=== PATIENT | male | born 1975 | race Caucasian/White ===

== ENCOUNTER 2023-10-12 21:21 | Outpatient (REF) | payer OTHER, SELFPAY ==
[2023-10-12 22:00] LABS: Bilirubin Urine NEGATIVE (NEGATIVE); Blood Urine NEGATIVE (NEGATIVE); Clarity Urine CLEAR (CLEAR); Color Urine YELLOW (YELLOW); Glucose Urine UA NEGATIVE (NEGATIVE); Ketones Urine NEGATIVE (NEGATIVE); Leukocyte Esterase Urine TRACE (NEGATIVE); Nitrite Urine NEGATIVE (NEGATIVE); Protein Urine NEGATIVE (NEG/TRACE); Urobilinogen Urine 0.2 EU/dL (0.2-1.0)
[2023-10-12 22:06] LABS: Urine Microscopic Indicated YES
[2023-10-12 22:08] LABS: Bacteria Urine NONE SEEN #/HPF (NONE SEEN); Cast Seen? NONE SEEN #/LPF (NONE SEEN); Crystals Seen? None Seen #/HPF (None Seen); Mucus Urine NONE SEEN (NONE SEEN); RBC Urine 0-2 #/HPF (0-2); Squamous Epithelial Cell Urine NONE SEEN #/LPF (NONE/RARE); WBC Urine 0-2 #/HPF (NONE SEEN)
== END 2023-10-12 21:22 | disposition home or self-care (01) ==
LOC: LAB 21:21
PROVIDERS: PCP Family Medicine; Visit Provider Nurse Practitioner
DX: R30.0 Dysuria (principal); R35.1 Nocturia
CPT/HCPCS: 81001; 87086

== ENCOUNTER 2023-10-28 15:36 | Outpatient (OUT) | payer OTHER, SELFPAY ==
--- OUTSIDE RECORDS SUMMARY | 2023-10-28 15:42 | XMS_ITS | CCD ---
Author Organization [facility] Care Team Providers Care Management Recruiter Name Role Phone DYLAN CRAWFORD Attending Unavail able NONE PER PATIENT, . Primary Care Unavailable ESTEFANY IVERSON Primary Care Physician Estefany Iverson. Primary Care Provider MITUL JACKSON Attending Unavailable MITUL JACKSON Admitting Unavailable ESTEFANY IVERSON. Primary Care Unavailable ESTEFANY IVERSON. Primary Care Unavailable MITUL JACKSON Attending Unavailable ESTEFANY IVERSON. Primary Care Unavailable MITUL JACKSON Attending Unavailable Eladiohchelsea BOUFFANT CURTAIN MACHINE TENDEREstefany RUANO Primary Care Provider HAILE RAVI Attending Unavailable ESTEFANY IVERSON Referring Unavailable DEYSI ESTEFANY J Primary Care Unavailable DYLAN ONTIVEROS Attending Unavailable ESTEFANY IVERSON Referring Unavailable DEYSI ESTEFANY J Primary Care Unavailable DYLAN ONTIVEROS Referring Unavailable ESTEFANY IVERSON Primary Care Unavailable ESTEFNAY IVERSON Attending Unavailable ESTEFANY IVERSON Attending Unavailable DEYSI ESTEFANY Latasha Referring Unavailable DEYSI ESTEFANY J Primary Care Unavailable Medications Current Medications Medication Drug Class(es) Dates Sig (Normalized) Sig (Original) acetaminophen 325 mg / oxyCODONE hydrochloride 5 mg oral tablet (3 sources) Opioid Agonist Start: 07-18-2022 End: 07-23-2022 oxyCODONE-acetami nophen (PERCOCET) 5-325 MG per tablet Indications: Post-operative state , Post-op pain Take 1 tablet by mouth every 6 hours as needed for Pain for up to 5 days. Intended supply: 5 days. Take lowest dose possible to manage pain 20 tablet 0 07/18/2022 07/23/2022 Active buprenorphine 8 mg / naloxone 2 mg sublingual tablet (5 sources) Partial Opioid Agonist, Opioid Antagonist Start: 03-24-2022 buprenorphine-nal oxone (SUBOXONE) 8-[address] tablet [address] 2 tablets under the tongue and ALLOW to dissolve once daily 0 03/24/2022 Active buprenorphine-na loxone (SUBOXONE) 8-2 mg film Dissolve on tongue. 0 Active calcium chloride 0.0014 meq/ml / potassium chloride 0.004 meq/ml / sodium chloride 0.103 meq/ml / sodium lactate 0.028 meq/ml injectable solution (1 source) Start: 07-18-2022 lactated ringe rs infusion doxycycline hyclate 100 mg oral capsule (2 sources) Tetracycline-cla ss Drug Start: 07-05-2019 take 1 capsule by mouth twice daily doxycycline (VIBRAMYCIN) 100 mg capsule Take 1 capsule (100 mg total) by mouth 2 (two) times a day. 20 capsule 0 07/05/2019 Active 0.5 ml HYDROmorphone hydrochloride 1 mg/ml prefilled syringe (1 source) Opioid Agonist Start: 07-18-2022 HYDROmorphone HCl PF (DILAUDID) injection 0.5 mg labetalol hydrochloride 5 mg/ml injectable solution (1 source) beta-Adrenergic Lesli Start: 07-18-2022 labetalol (NORMODYNE;TRANDATE ) injection 10 mg omeprazole 40 mg delayed release oral capsule (7 sources) Proton Pump Inhibitor Start: 04-18-2022 take 1 capsule by mouth once daily omeprazole (PRILOSEC) 40 MG delayed release capsule take 1 capsule by mouth once daily 0 04/18/2022 Active Start: 03-26-2022 omeprazole Ora l, Daily, Refills(s) 0 Start Date: 03/26/22 Status: Ordered End: 07-18-2022 omeprazole (PriLOSEC) 10 mg capsule Take 1 capsule (10 mg total) by mouth. 0 Active 2 ml ondansetron 2 mg/ml injection (1 source) Serotonin-3 Receptor Antagonist Start: 07-18-2022 End: 07-19-2022 ondansetron (ZOFRAN) injection 4 mg oxyCODONE hydrochloride 5 mg oral tablet (1 source) Opioid Agonist Start: 07-18-2022 End: 07-19-2022 oxyCODONE (ROXICODONE) immediate release tablet 5 mg pregabalin 100 mg oral capsule (6 sources) Start: 04-23-2022 take 1 capsule by mouth once daily in the morning, then take 2 capsules by mouth once daily in the evening pregabalin (LYRICA) 100 MG capsule take 1 capsule by mouth every morning and take 2 capsules by mouth every evening 0 04/23/2022 Active Start: 03-26-2022 Lyrica Oral, R efills(s) 0 Start Date: 03/26/22 Status: Ordered 2 ml prochlorperazine 5 mg/ml injection (1 source) Phenothiazine Start: 07-18-2022 End: 07-19-2022 prochlorperazine (COMPAZINE) injection 5 mg 5 ml sodium chloride 9 mg/ml injection (3 sources) Start: 07-18-2022 0.9 % sodium c hloride infusion Start: 07-18-2022 sodium chlorid e flush 0.9 % injection 5-40 mL 0.5 ml testosterone enanthate 200 mg/ml auto-injector (2 sources) Androgen Start: 05-06-2023 inject 100 mg by subcutaneous injection every week XYOSTED 100 mg/0.5 mL auto-injector inject 100 milligram subcutaneously every week 0 05/06/2023 Active traZODone hydrochloride 50 mg oral tablet (2 sources) Serotonin Reuptake Inhibitor Start: 05-06-2023 traZODone (DESYREL) 50 mg tablet TAKE 1 TABS AT BEDTIME FOR 7 DAYS, INCREASE TO 2 TABS AT BEDTIME NEEDED 0 05/06/2023 Active Completed/Discontinued Medications Medication Drug Class(es) Dates Sig (Normalized) Sig (Original) betamethasone 3 mg/ml / betamethasone acetate 3 mg/ml injectable suspension (2 sources) Corticosteroid Start: 08-19-2023 End: 08-19-2023 betamethasone acet & sod phos (CELESTONE) injection 12 mg Problems Active Problems Problem Classification Problem Date Documented Date Episodic/Chronic Acquired foot deformities (4 sources) Hammer toe; Translations: [Other hammer toe(s) (acquired), right foot] Onset: 07-18-2022 Chronic Acquired foot deformities (4 sources) Hammer toe; Translations: [Other hammer toe(s) (acquired), left foot] Onset: 07-18-2022 Chronic Acquired foot deformities (1 source) Acquired deformity of right foot; Translations: [Valgus deformity, not elsewhere classified, right ankle] 09-16-2023 Episodic Acquired foot deformities (1 source) Acquired abduction deformity of foot; Translations: [Valgus deformity, not elsewhere classified, left ankle] 09-16-2023 Episodic Disorders of lipid metabolism (1 source) Mixed hyperlipidemia; Translations: [Mixed hyperlipidemia] Onset: 10-27-2023 Chronic Esophageal disorders (1 source) Gastro-esophageal reflux disease without esophagitis; Translations: [Gastro-esophageal reflux disease without esophagitis] Onset: 10-27-2023 Chronic Genitourinary symptoms and ill-defined conditions (2 sources) Nocturia; Translations: [Dysuria] Onset: 10-27-2023 Episodic Inflammatory conditions of male genital organs (1 source) Epididymitis; Translations: [Epididymitis] Onset: 03-26-2022 Episodic Osteoarthritis (10 sources) Unilateral post-traumatic osteoarthritis, right knee; Translations: [Osteoarthrosis, localized, secondary, lower leg] Onset: 08-19-2023 08-19-2023 Chronic Other acquired deformities (4 sources) Contracture of joint of right foot; Translations: [Contracture, right foot] Onset: 07-18-2022 Chronic Other acquired deformities (4 sources) Contracture of joint of left foot; Translations: [Contracture, left foot] Onset: 07-18-2022 Chronic Other connective tissue disease (4 sources) Pain in left foot; Translations: [Pain in left foot] Onset: 07-18-2022 Episodic Other connective tissue disease (4 sources) Pain in right foot; Translations: [Pain in right foot] Onset: 07-18-2022 Episodic Other connective tissue disease (1 source) Pain in both feet; Translations: [Pain in right foot] 09-16-2023 Episodic Other connective tissue disease (1 source) Pain in right foot; Translations: [Pain in right foot] Onset: 09-16-2023 Episodic Other connective tissue disease (1 source) Pain in left foot; Translations: [Pain in left foot] Onset: 09-16-2023 Episodic Other nervous system disorders (1 source) Postoperative pain ; Translations: [Other acute postprocedural pain] Episodic Other nervous system disorders (1 source) Other acute postprocedural pain; Translations: [Other acute postprocedural pain] Onset: 07-18-2022 Episodic Other nutritional; endocrine; and metabolic disorders (1 source) Obesity, unspecified; Translations: [Obesity, unspecified] Onset: 10-27-2023 Chronic Other screening for suspected conditions (not mental disorders or infectious disease) (1 source) Encounter for screening for malignant neoplasm of prostate; Translations: [Encounter for screening for malignant neoplasm of prostate] Onset: 10-27-2023 Episodic Residual codes; unclassified (7 sources) Postoperative state; Translations: [Other specified postprocedural states] Onset: 07-18-2022 Episodic Residual codes; unclassified (1 source) Other specified postprocedural states; Translations: [Other specified postprocedural states] Onset: 07-18-2022 Episodic Residual codes; unclassified (1 source) Pain Onset: 08-19-2023 Episodic Substance-related disorders (1 source) Nicotine dependence, cigarettes, uncomplicated; Translations: [Nicotine dependence, cigarettes, uncomplicated] Onset: 09-24-2018 Chronic Unclassified (1 source) New Patient Onset: 09-16-2023 Past or Other Problems Problem Classification Problem Date Documented Da te Episodic/Chronic Contraceptive and procreative management (4 sources) Encounter for sterilization; Translations: [Patient encounter status] Onset: 09-06-2018 09-06-2018 Episodic Open wounds of extremities (3 sources) Laceration of foot; Translations: [Laceration without foreign body, right foot, initial encounter] Onset: 12-28-2015 12-28-2015 Episodic Open wounds of extremities (2 sources) Open wound of left lower leg; Translations: [Unspecified open wound, left lower leg, initial encounter] Onset: 07-06-2019 07-06-2019 Episodic Residual codes; unclassified (2 sources) Tobacco use and exposure - finding; Translations: [Tobacco use] Onset: 07-13-2019 07-13-2019 Episodic Results Test Name Value Interpretation Reference Range Facility CBC AND AUTO DIFFon 10-27-19 ABSOLUTE BASOPHIL 0.0 X10E9/L Normal 0.0-0.2 [facility] Comment on above: Performed By: #### C BCA, 2857-1, CMP, 26372-5 #### [facility] ([id number]) [address], [address] [place] [address] ABSOLUTE NEUTROPHIL 4.9 X10E9/L Normal 1.5-6.6 [facility] Comment on above: Performed By: #### Jeremy BCA, 2857-1, CMP, 98855-6 #### [facility] ([id number]) [address], [address] [place] [address] Basophils/100 WBC (Bld) 0.4 % Normal [facility] Comment on above: Performed By: #### Jeremy BCA, 2857-1, CMP, 94505-7 #### [facility] ([id number]) [address], [address] [place] [address] Eosinophils (Bld) [#/Vol] 0.2 10*3/uL Normal 0.0-0.4 [facility] Comment on above: Performed By: #### Jeremy BCA, 2857-1, CMP, 74705-8 #### [facility] ([id number]) [address], [address] [place] [address] Eosinophils/100 WBC (Bld) 2.1 % Normal [facility] Comment on above: Performed By: #### Jeremy BCA, 2857-1, CMP, 25412-1 #### [facility] ([id number]) [address], [address] [place] [address] Erythrocyte distribution width (RBC) [Ratio] 14.0 % Normal 11.5-15.0 [facility] Comment on above: Performed By: #### Jeremy BCA, 2857-1, CMP, 33054-8 #### [facility] ([id number]) [address], [address] [place] [address] Hematocrit (Bld) [Volume fraction] 46.2 % Normal 39-49 [facility] Comment on above: Performed By: #### Jeremy BCA, 2857-1, CMP, 53702-9 #### [facility] ([id number]) [address], [address] [place] [address] Hemoglobin (Bld) [Mass/Vol] 15.1 g/dL Normal 13.0-17.0 [facility] Comment on above: Performed By: #### Jeremy REA, 2857-1, CMP, 37442-1 #### [facility] ([id number]) [address], [address] [place] [address] Lymphocytes (Bld) [#/Vol] 1.6 10*3/uL Normal 1.0-3.5 [facility] Comment on above: Performed By: #### Jeremy REA, 2857-1, CMP, 47365-6 #### [facility] ([id number]) [address], [address] [place] [address] Lymphocytes/100 WBC (Bld) 22.1 % Normal [facility] Comment on above: Performed By: #### Jeremy REA, 2857-1, CMP, 38129-7 #### [facility] ([id number]) [address], [address] [place] [address] MCH (RBC) [Entitic mass] 29.6 pg Normal 27-34 [facility] Comment on above: Performed By: #### Jeremy BCA, 2857-1, CMP, 56704-5 #### [facility] ([id number]) [address], [address] [place] [address] MCHC (RBC) [Mass/Vol] 32.6 g/dL Normal 32-36 [facility] Comment on above: Performed By: #### Jeremy BCA, 2857-1, CMP, 08988-6 #### [facility] ([id number]) [address], [address] [place] [address] MCV (RBC) [Entitic vol] 91 fL Normal 80-100 [facility] Comment on above: Performed By: #### Jeremy BCA, 2857-1, CMP, 78126-2 #### [facility] ([id number]) [address], [address] [place] [address] Monocytes (Bld) [#/Vol] 0.6 10*3/uL Normal 0-0.9 [facility] Comment on above: Performed By: #### Jeremy BCA, 2857-1, CMP, 43784-1 #### [facility] ([id number]) [address], [address] [place] [address] Monocytes/100 WBC (Bld) 8.6 % Normal [facility] Comment on above: Performed By: #### Jeremy BCA, 2857-1, CMP, 67192-6 #### [facility] ([id number]) [address], [address] [place] [address] Neutrophils/100 WBC (Bld) 66.8 % Normal [facility] Comment on above: Performed By: #### Jeremy BCA, 2857-1, CMP, 24939-5 #### [facility] ([id number]) [address], [address] [place] [address] Platelet mean volume (Bld) [Entitic vol] 7.9 fL Normal 7-12 [facility] Comment on above: Performed By: #### Jeremy BCA, 2857-1, CMP, 13865-4 #### [facility] ([id number]) [address], [address] [place] [address] Platelets (Bld) [#/Vol] 296 10*3/uL Normal 150-450 [facility] Comment on above: Performed By: #### Jeremy BCA, 2857-1, CMP, 36060-6 #### [facility] ([id number]) [address], [address] [place] [address] RBC COUNT 5.08 X10E12/L Normal 4.10-5.70 [facility] Comment on above: Performed By: #### C BCA, 2857-1, CMP, 74173-4 #### [facility] ([id number]) [address], [address] [place] [address] WBC (Bld) [#/Vol] 7.3 10*3/uL Normal 4.0-11.0 [facility] Comment on above: Performed By: #### C BCA, 2857-1, CMP, 90455-3 #### [facility] ([id number]) [address], [address] [place] [address] COMPREHENSIVE METABOLIC PANE Evan 10-27-2023 Albumin [Mass/Vol] 4.1 g/dL Normal 3.2-5.3 [facility] Comment on above: Performed By: #### C BCA, 2857-1, CMP, 46638-3 #### [facility] ([id number]) [address], [address] [place] [address] ALP [Catalytic activity/Vol] 59 U/L Normal 39-130 [facility] Comment on above: Performed By: #### C BCA, 2857-1, CMP, 63205-8 #### [facility] ([id number]) [address], [address] [place] [address] ALT [Catalytic activity/Vol] 37 U/L Normal 0-40 [facility] Comment on above: Performed By: #### C BCA, 2857-1, CMP, 41682-1 #### [facility] ([id number]) [address], [address] [place] [address] Anion gap [Moles/Vol] 11 mmol/L Normal 5-15 [facility] Comment on above: Performed By: #### C BCA, 2857-1, CMP, 56675-3 #### [facility] ([id number]) [address], [address] [place] [address] AST [Catalytic activity/Vol] 42 U/L High 0-41 [facility] Comment on above: Performed By: #### C BCA, 2857-1, CMP, 46906-0 #### [facility] ([id number]) [address], [address] [place] [address] Bilirubin [Mass/Vol] 0.9 mg/dL Normal 0.3-1.2 [facility] Comment on above: Performed By: #### C BCA, 2857-1, CMP, 09170-3 #### [facility] ([id number]) [address], [address] [place] [address] Calcium [Mass/Vol] 9.0 mg/dL Normal 8.5-10.5 [facility] Comment on above: Performed By: #### C BCA, 2857-1, CMP, 16882-9 #### [facility] ([id number]) [address], [address] [place] [address] Chloride [Moles/Vol] 99 mmol/L Normal 98-109 [facility] Comment on above: Performed By: #### C BCA, 2857-1, CMP, 67793-8 #### [facility] ([id number]) [address], [address] [place] [address] CO2 [Moles/Vol] 27 mmol/L Normal 22-32 [facility] Comment on above: Performed By: #### C BCA, 2857-1, CMP, 88696-6 #### [facility] ([id number]) [address], [address] [place] [address] Creatinine [Mass/Vol] 0.95 mg/dL Normal 0.60-1.30 [facility] Comment on above: Result Comment: METH OD TRACEABLE TO IDMS STANDARD Performed By: #### C BCA, 2857-1, CMP, 26084-4 #### [facility] ([id number]) [address], [address] [place] [address] eGFR (CKD-EPI) NON-RACE DEPENDENT >90 Normal >59 [facility] Comment on above: Result Comment: Reported eGFR is based on the CKD-EPI 2020 equation that does not use a race coefficient. Performed By: #### C BCA, 2857-1, CMP, 02076-3 #### [facility] ([id number]) [address], [facility] [address] [place] [address] Glucose [Mass/Vol] 96 mg/dL Normal 65-99 [facility] Comment on above: Performed By: #### C BCA, 2857-1, CMP, 35824-6 #### [facility] ([id number]) [address] [address] [place] [address] Potassium [Moles/Vol] 3.9 mmol/L Normal 3.5-5.0 [facility] Comment on above: Performed By: #### C BCA, 2857-1, CMP, 16686-6 #### [facility] ([id number]) [address] [address] [place] [address] Protein [Mass/Vol] 6.3 g/dL Normal 6.0-8.0 [facility] Comment on above: Performed By: #### C BCA, 2857-1, CMP, 67908-0 #### [facility] ([id number]) [address] [address] [place] [address] Sodium [Moles/Vol] 137 mmol/L Normal 134-146 [facility] Comment on above: Performed By: #### C BCA, 2857-1, CMP, 92128-3 #### [facility] ([id number]) [address] [address] [place] [address] Urea nitrogen [Mass/Vol] 9 mg/dL Normal 5-23 [facility] Comment on above: Performed By: #### C BCA, 2857-1, CMP, 23845-7 #### [place] [facility] ([id number]) [address], [address] [place] [address] Lipid 1996 panelon 4 Cholesterol [Mass/Vol] 168 mg/dL Normal 150-200 [facility] Comment on above: Performed By: #### Jeremy BCA, 2857-1, CMP, 17017-9 #### [facility] ([id number]) [address], [address] [place] [address] Cholesterol in HDL [Mass/Vol] 68 mg/dL Normal >39 [facility] Comment on above: Result Comment: HDL <40 mg/dL - High Risk HDL > or = 40mg/dL- Desirable HDL >60 mg/dL - Negative Risk Performed By: #### Jeremy BCA, 2857-1, CMP, 32419-0 #### [facility] ([id number]) [address], [address] [place] [address] Cholesterol in LDL [Mass/Vol] 80 mg/dL Normal <130 [facility] Comment on above: Result Comment: LDL <100 mg/dL - Desirable LDL >160 mg/dL - High Risk Performed By: #### Jeremy BCA, 2857-1, CMP, 64456-1 #### [facility] ([id number]) [address], [address] [place] [address] Cholesterol in VLDL [Mass/Vol] 20 mg/dL Normal 0-30 [facility] Comment on above: Performed By: #### Jeremy BCA, 2857-1, CMP, 60531-9 #### [facility] ([id number]) [address], [address] [place] [address] CHOLESTEROL:HDL 2.5 Normal 1.0-5.0 [facility] Comment on above: Performed By: #### C BCA, 2857-1, CMP, 36364-7 #### [facility] ([id number]) [address], [address] [place] [address] Triglyceride [Mass/Vol] 102 mg/dL Normal 27-150 [facility] Comment on above: Performed By: #### C BCA, 2857-1, CMP, 94365-5 #### [facility] ([id number]) [address], [address] [place] [address] Prostate specific Ag [Mass/V ol]on 10-27-2023 PROSTATIC SPEC ANT 0.11 ng/mL Normal 0.00-4.00 [facility] Comment on above: Result Comment: The method used for this test is Makenna Techtium DXI chemiluminescent immunoassay. Values obtained by different assay methods cannot be used interchangeably. Performed By: #### C BCA, 2857-1, [facility], 07920-0 #### [facility] ([id number]) [address], [address] [place] [address] XR Foot - right 3 Views W andingon 09-16-2023 Date xrays obtained :09/16/2023 Standing AP, lateral oblique of the right foot was obtained today. This shows evidence of fixation across the 2nd toe IP joint. Patient also noted to have subluxation 1st and 2nd tarsometatarsal joints. And also some talonavicular uncoverage. Patient is also noted to have some gapping along the plantar aspect of the TMT joints. MANUALLY TRANSCRIBED RESULTS [facility] Rad[facility] Study observation (narrative) [facility] XR Foot 3 Views W standingon 09-16-2023 Date xrays obtained :09/16/2023 Standing AP, lateral oblique of the left foot was obtained today. This shows patient to have well fused 2nd toe IP joint with a implant in place. Patient is also going to have fairly significant talonavicular uncoverage. There is some subluxation of the tarsometatarsal joints. The lateral view also shows fairly significant collapse of the arch with the medial cuneiform sitting well below the level of the 5th metatarsal. There is also plantar gapping along the 1st TMT joint region. MANUALLY TRANSCRIBED RESULTS [email or web address] Radiology Study observation (narrative) [facility] $ Large Joint Injection: ghazal ateral kneeon 08-19-2023 Haile Ravi MD 08/19/2023 4:38 PM $ Large Joint Injection: bilateral knee on 08/19/2023 3:12 PM Indications: pain Details: 22 G needle, anterolateral approach Medications (Right): 12 mg betamethasone acet & sod phos 6 mg/mL Medications (Left): 12 mg betamethasone acet & sod phos 6 mg/mL Outcome: tolerated well, no immediate complications The patient was instructed to use ice, NSAIDs, or Tylenol for pain as needed. The patient will call with any signs or concerns. Procedure, treatment alternatives, risks and benefits explained, specific risks discussed. Patient was prepped and draped in the usual sterile fashion. MANUALLY TRANSCRIBED RESULTS [facility] MRI Knee w/o Righton 023 MRI Knee w/o Right History: Lateral kne e pain. Internal derangement. Technique: Multiplanar multisequence MRI of the knee was performed without contrast. Comparison: Radiograph since the knee 11/13/2022 Findings: Examination is degraded by motion artifact. Quadriceps and patellar tendons are intact. Small joint effusion. Postsurgical changes of ACL reconstruction. ACL graft is intact. The posterior cruciate ligament is intact. Millimeter intraosseous ganglion of the posterior tibial plateau at the attachment of the posterior cruciate ligament. The medial collateral ligament, lateral collateral ligament, and popliteus are intact. Mild popliteus tendinosis. Complex tear of the body through posterior horn of the medial meniscus including complete radial tear of the posterior horn. Horizontal tear of the body through posterior horn/root of the lateral meniscus. 11 mm full-thickness cartilage defect of the posterior weightbearing lateral femoral condyle with a few foci of subcortical bone marrow edema. Additional scattered tiny tricompartmental partial thickness cartilage defects. Small medial and lateral compartment marginal osteophytes. Popliteal fossa structures are intact. No Newman cyst. IMPRESSION: Complex tear of the body through posterior horn of the medial meniscus. Horizontal tear of the body through posterior horn/root of the lateral meniscus. Osteoarthritis most significantly involving the lateral compartment. Report reported and signed by Kiran Jarrett on 12/14/2022 1346 Normal [facility] [employer] Crewmember FLUORO FOR SURGICAL PROCEDUR ESon 07-18-2022 FLUORO FOR SURGICAL PROCEDURES Radiology exam is complete. No Radiologist dictation. Please follow up with ordering provider. Final result Normal [facility] Radiology exam is complete. No Radiologist dictation. Please follow up with ordering provider. [facility] XR FOOT LEFT (MIN 3 VIEWS)on 07-18-2022 XR FOOT LEFT (MIN 3 VIEWS) EXAMINATION: THREE XRAY VIEWS OF THE LEFT FOOT 07/18/2022 10:19 am COMPARISON: 05/05/2022 HISTORY: ORDERING SYSTEM PROVIDED HISTORY: Post-operative state TECHNOLOGIST PROVIDED HISTORY: Reason for Exam: Post op state, left second hammertoe arthrodesis. FINDINGS: Status post arthrodesis across the 2nd PIP joint. Anatomic alignment. No hardware complications. IMPRESSION: No hardware complications postoperatively Interpreted by: Reyes Palacios MD Signed by: Reyes Palacios MD 07/18/[address] [facility] No hardware complications postoperatively [facility] EXAMINATION: THREE XRAY VIEWS OF THE LEFT FOOT 07/18/2022 10:19 am COMPARISON: 05/05/2022 HISTORY: ORDERING SYSTEM PROVIDED HISTORY: Post-operative state TECHNOLOGIST PROVIDED HISTORY: Reason for Exam: Post op state, left second hammertoe arthrodesis. FINDINGS: Status post arthrodesis across the 2nd PIP joint. Anatomic alignment. No hardware complications. [facility] Reyes Palacios MD - 07/18/2022 EXAMINATION: THREE XRAY VIEWS OF THE LEFT FOOT 07/18/2022 10:19 am COMPARISON: 05/05/2022 HISTORY: ORDERING SYSTEM PROVIDED HISTORY: Post-operative state TECHNOLOGIST PROVIDED HISTORY: Reason for Exam: Post op state, left second hammertoe arthrodesis. FINDINGS: Status post arthrodesis across the 2nd PIP joint. Anatomic alignment. No hardware complications. IMPRESSION: No hardware complications postoperatively [employer] Phone: Radiology Study observation (narrative) [employer] Phone: XR FOOT LEFT (MIN 3 VIEWS)Or dered By: Reyes Palacios on 07-18-2022 CECI SUGEY [facility] [employer] Work Phone: XR FOOT RIGHT (MIN 3 VIEWS)o n 07-18-2022 XR FOOT RIGHT (MIN 3 VIEWS) EXAM: XR Right Foot Complete, 3 or More Views EXAM DATE/TIME: 07/18/2022 10:19 am CLINICAL HISTORY: ORDERING SYSTEM PROVIDED Post-operative state TECHNOLOGIST PROVIDED HISTORY: Reason for Exam: Post op state, right second hammertoe arthrodesis. TECHNIQUE: Frontal, lateral and oblique views of the right foot. COMPARISON: 05/05/2022 FINDINGS: Bones/joints: Arthrodesis of the proximal or phalangeal joint of the 2nd toe with screw in place and unchanged in appearance or alignment. Plantar/calcaneal spur without evidence of erosion. No acute fracture. Soft tissues: No acute findings. No radiopaque foreign body. IMPRESSION: Arthrodesis of the proximal or phalangeal joint of the 2nd toe with screw in place and unchanged in appearance or alignment. No acute abnormality or significant changes noted otherwise. Interpreted by: Dylan Llanes MD Signed by: Dylan Llanes MD 07/18/[address] [facility] Arthrodesis of the proximal or phalangeal joint of the 2nd toe with screw in place and unchanged in appearance or alignment. No acute abnormality or significant changes noted otherwise. [facility] EXAM: XR Right Foot Complete, 3 or More Views EXAM DATE/TIME: 07/18/2022 10:19 am CLINICAL HISTORY: ORDERING SYSTEM PROVIDED Post-operative state TECHNOLOGIST PROVIDED HISTORY: Reason for Exam: Post op state, right second hammertoe arthrodesis. TECHNIQUE: Frontal, lateral and oblique views of the right foot. COMPARISON: 05/05/2022 FINDINGS: Bones/joints: Arthrodesis of the proximal or phalangeal joint of the 2nd toe with screw in place and unchanged in appearance or alignment. Plantar/calcaneal spur without evidence of erosion. No acute fracture. Soft tissues: No acute findings. No radiopaque foreign body. [facility] Dylan Llanes MD - 07/18/2022 EXAM: XR Right Foot Complete, 3 or More Views EXAM DATE/TIME: 07/18/2022 10:19 am CLINICAL HISTORY: ORDERING SYSTEM PROVIDED Post-operative state TECHNOLOGIST PROVIDED HISTORY: Reason for Exam: Post op state, right second hammertoe arthrodesis. TECHNIQUE: Frontal, lateral and oblique views of the right foot. COMPARISON: 05/05/2022 FINDINGS: Bones/joints: Arthrodesis of the proximal or phalangeal joint of the 2nd toe with screw in place and unchanged in appearance or alignment. Plantar/calcaneal spur without evidence of erosion. No acute fracture. Soft tissues: No acute findings. No radiopaque foreign body. IMPRESSION: Arthrodesis of the proximal or phalangeal joint of the 2nd toe with screw in place and unchanged in appearance or alignment. No acute abnormality or significant changes noted otherwise. [employer] Phone: Radiology Study observation (narrative) [employer] Phone: XR FOOT RIGHT (MIN 3 VIEWS)O rdered By: Dylan Llanes on 07-18-2022 [employer] [facility] [employer] Work Phone: [employer] 03-27-2022 Forms [id number] .00CD:127 Normal [facility] Physician Referralon 022 Physician Referral [id number]. 00CD:127 Normal [facility] Screenson 03-27-2022 Screens [id number]. 00CD:127 Normal [facility] Screens [id number]. 00CD:127 Normal [facility] Ambulatory Visit Summaryon 0 03-26-2022 Ambulatory Visit Summary RICCI RODRIGES :1975 Visit Date:03/26/2022 Ambulatory Visit Instructions Your Diagnosis Epididymitis Tests Performed Urnls Dip Stick Auto w/o Microscopy POC 10503 Your Care Team Attending Physician - Pedro RDZ, Gemini Gregorio Primary Care Physician - ESTEFANY IVERSON CNP Referring Physician - SHAIKH MARTIN This Is Your Medications List Contact prescribing physician if questions or concerns omeprazole pregabalin (Lyrica) Procedures Performed Colonoscopy. Discharge Vitals Height 194 cm Height 194.0 cm Weight 117 kg Weight 117.0 kg BMI 31.09 What to do next You Need to Schedule the Following Appointments Follow Up with Pedro RDZ, Gemini Gregorio, URAriadna, URO When: Only if needed Comments: PRN Where: Medications What How Much When Instructions Unchanged omeprazole Every day Contact prescribing physician if questions or concerns Unchanged pregabalin (Lyrica) Contact prescribing physician if questions or concerns Test Results Urnls Dip Stick Auto w/o Microscopy POC 38609 (03/26/2022) Bilirubin Urine Dipstick - Negative Blood Urine Dipstick - Negative Glucose Urine Dipstick - Negative Ketones Urine Dipstick - Negative Leukocytes Urine Dipstick - Negative Nitrite Urine Dipstick - Negative Protein Urine Dipstick - Negative Specific [place] Urine Dipstick - 1.020 Urine Appearance Urine Dipstick - Clear Urine Color Urine Dipstick - Yellow Urobilinogen Urine Dipstick - Normal 0.2-1 EU/dl pH Urine Dipstick - 5.5 Medications and Immunizations Administered Not Given SARS-CoV-2 mRNA (tozinameran 5y-11y) vac, Postpone due to refusal Allergies No Known Allergies No Known Medication Allergies Education Materials Testicular Self-Exam A self-examination of your testicles (testicular self-exam) involves looking at and feeling your testicles for abnormal lumps or swelling. Several things can cause swelling, lumps, or pain in your testicles. Some of these causes are: ? Injuries. ? Inflammation. ? Infection. ? Buildup of fluids around your testicle (hydrocele). ? Twisted testicles (testicular torsion). ? Testicular cancer. Why is it important to do a testicular self-exam? Self-examination of the testicles and the left and right groin areas may be recommended if you are at risk for testicular cancer. Your groin is where your lower abdomen meets your upper thighs. You may be at risk for testicular cancer if you have: ? An undescended testicle (cryptorchidism). ? A history of previous testicular cancer. ? A family history of testicular cancer. How to do a testicular self-exam The testicles are easiest to examine after a warm bath or shower. They are more difficult to examine when you are cold. This is because the muscles attached to the testicles retract and pull them up higher or into the abdomen. A normal testicle is egg-shaped and feels firm. It is smooth and not tender. The spermatic cord can be felt as a firm, spaghetti-like cord at the back of your testicle. Look and feel for changes ? Stand and hold your penis away from your body. ? Look at each testicle to check for lumps or swelling. ? Roll each testicle between your thumb and forefinger, feeling the entire testicle. Feel for: ? Lumps. ? Swelling. ? Discomfort. ? Check the groin area between your abdomen and upper thighs on both sides of your body. Look and feel for any swelling or bumps that are tender. These could be enlarged lymph nodes. Contact a health care provider if: ? You find any bumps or lumps, such as a small, hard, pea-sized lump. ? You find swelling, pain, or soreness. ? You see or feel any other changes in your testicles. Summary ? A self-examination of your testicles (testicular self-exam) involves looking at and feeling your testicles for any changes. ? Self-examination of the testicles and the left and right groin areas may be recommended if you are at risk for testicular cancer. ? You should check each of your testicles for lumps, swelling, or discomfort. ? You should check for swelling or tender bumps in your groin area between your lower abdomen and upper thighs. This information is not intended to replace advice given to you by your health care provider. Make sure you discuss any questions you have with your health care provider. Document Released: 10/26/2001 Document Revised: 11/10/2019 Document Reviewed: 06/15/2017 [employer] Patient Education ? 2020 [employer] Epididymitis Epididymitis is swelling (inflammation) or infection of the epididymis. The epididymis is a cord-like structure that is located along the top and back part of the testicle. It collects and stores sperm from the testicle. This condition can also cause pain and swelling of the testicle and scrotum. Symptoms usually start suddenly (acute epididymitis). Sometimes epididymitis starts grad (more content not included)... Normal [facility] Patient Educationon 03-26-20 Patient Education Urology Testicular Self-Exam A self-examination of your testicles (testicular self-exam) involves looking at and feeling your testicles for abnormal lumps or swelling. Several things can cause swelling, lumps, or pain in your testicles. Some of these causes are: ? Injuries. ? Inflammation. ? Infection. ? Buildup of fluids around your testicle (hydrocele). ? Twisted testicles (testicular torsion). ? Testicular cancer. Why is it important to do a testicular self-exam? Self-examination of the testicles and the left and right groin areas may be recommended if you are at risk for testicular cancer. Your groin is where your lower abdomen meets your upper thighs. You may be at risk for testicular cancer if you have: ? An undescended testicle (cryptorchidism). ? A history of previous testicular cancer. ? A family history of testicular cancer. How to do a testicular self-exam The testicles are easiest to examine after a warm bath or shower. They are more difficult to examine when you are cold. This is because the muscles attached to the testicles retract and pull them up higher or into the abdomen. A normal testicle is egg-shaped and feels firm. It is smooth and not tender. The spermatic cord can be felt as a firm, spaghetti-like cord at the back of your testicle. Look and feel for changes ? Stand and hold your penis away from your body. ? Look at each testicle to check for lumps or swelling. ? Roll each testicle between your thumb and forefinger, feeling the entire testicle. Feel for: ? Lumps. ? Swelling. ? Discomfort. ? Check the groin area between your abdomen and upper thighs on both sides of your body. Look and feel for any swelling or bumps that are tender. These could be enlarged lymph nodes. Contact a health care provider if: ? You find any bumps or lumps, such as a small, hard, pea-sized lump. ? You find swelling, pain, or soreness. ? You see or feel any other changes in your testicles. Summary ? A self-examination of your testicles (testicular self-exam) involves looking at and feeling your testicles for any changes. ? Self-examination of the testicles and the left and right groin areas may be recommended if you are at risk for testicular cancer. ? You should check each of your testicles for lumps, swelling, or discomfort. ? You should check for swelling or tender bumps in your groin area between your lower abdomen and upper thighs. This information is not intended to replace advice given to you by your health care provider. Make sure you discuss any questions you have with your health care provider. Document Released: 10/26/2001 Document Revised: 11/10/2019 Document Reviewed: 06/15/2017 [employer] Patient Education ? 2019 [employer]. Epididymitis Epididymitis is swelling (inflammation) or infection of the epididymis. The epididymis is a cord-like structure that is located along the top and back part of the testicle. It collects and stores sperm from the testicle. This condition can also cause pain and swelling of the testicle and scrotum. Symptoms usually start suddenly (acute epididymitis). Sometimes epididymitis starts gradually and lasts for a while (chronic epididymitis). This type may be harder to treat. What are the causes? In men ages 20?40, this condition is usually caused by a bacterial infection or a sexually transmitted disease (STD), such as: ? Gonorrhea. ? Chlamydia. In men 40 and older who do not have anal sex, this condition is usually caused by bacteria from a blockage or from abnormalities in the urinary system. These can result from: ? Having a tube placed into the bladder (urinary catheter). ? Having an enlarged or inflamed prostate gland. ? Having recently had urinary tract surgery. ? Having a problem with a backward flow of urine (retrograde). In men who have a condition that weakens the body's defense system (immune system), such as HIV, this condition can be caused by: ? Other bacteria, including tuberculosis and syphilis. ? Viruses. ? Fungi. Sometimes this condition occurs without infection. This may happen because of trauma or repetitive activities such as sports. What increases the risk? You are more likely to develop this condition if you have: ? Unprotected sex with more than one partner. ? Anal sex. ? Recently had surgery. ? A urinary catheter. ? Urinary problems. ? A suppressed immune system. What are the signs or symptoms? This condition usually begins suddenly with chills, fever, and pain behind the scrotum and in the testicle. Other symptoms include: ? Swelling of the scrotum, testicle, or both. ? Pain when ejaculating or urinating. ? Pain in the back or abdomen. ? Nausea. ? Itching and discharge from the penis. ? A frequent need to pass urine. ? Redness, increased warmth, and tenderness of the scrotum. How is this diagnosed? Your health care provider can karen (more content not included)... Normal [facility] Urology Office/Clinic Noteon 03-26-2022 Urology Office/Clinic Note Chief Complaint New Patient HPI Staff Ricci is a 46 y/o male here for scrotal pain. Pt states he was put on ABX and everything cleared up on its own. Dysuria: _denies Incomplete bladder emptying: _denies Hematuria: _denies Frequency: _denies Urgency: _denies Nocturia: _1x Stream: _steady Leaking: _denies Post void dripping: _denies Wearing pads/ Depends: _denies Urge incontinence: _denies Stress incontinence: _denies Incontinence without Sensory Awareness: _denies Abdominal pain: _denies Flank pain: _denies Sexual complaints: _ History of Present Illness Tests Reviewed: Reviewed UA. New pt paperwork I have reviewed and verified the staff HPI to be accurate for this encounter. There have been no associated fever, chills, flank pain, or blood in the urine. Denies any urinary infections since last encounter. Review of Prior External Notes and Results: The following documents and/or results were reviewed on this visit which are external to my provider group and/or outside of my specialty: Records Reviewed: Outside Provider Notes, Review of Systems ROS - Provider Constitutional: denies weight loss, denies hot flashes. Eyes: denies eye problems. Gastrointestinal: denies nausea, denies vomiting. Cardiovascular: denies chest pain or angina. Integumentary: no dryness Musculoskeletal: denies musculoskeletal symptoms. ENMT: denies otolaryngeal symptoms. Respiratory: no shortness of breath. Heme/Lymph: denies easy bleeding tendency, denies easy bruising tendency. Psychiatric: no confusion, no anxiety. Genitourinary: see HPI Physical Exam Vitals & Measurements HT: 194 cm HT: 194.0 cm WT: 117 kg WT: 117.0 kg BMI: 31.09 General Appearance: alert, no distress, well nourished, well developed male. Head: normocephalic . Eyes: normal orbit and globe. ENMT: normal examination of external ears. Chest: symmetric chest rise, respirations non labored. Cardiovascular: regular rate and rhythm. Abdomen: soft, non distended, no tenderness Genitourinary: normal scrotum, normal testes, normal urethra, BL epididymis non tender, small 2mm cyst the right mid epididymitis, normal vas deferens/spermatic cord. Flank Pain: none. Bladder: nonpalpable. Penis: normal shaft, normal glans. Circumcised Skin: warm, dry, no bruising. Psychiatric: cooperative, affect appropriate for age, normal judgement, euthymic mood. Assessment/Plan 46 yo M new patient evaluation for history of right scrotal pain TOSIN- 25 IPSS- 2 UA today is clear/negative no signs of any infections Vasectomy 3 years ago 1. Epididymitis (N45.1: Epididymitis) Pt went to his PCP because of scrotal pain. His PCP treated him with 10 days of ABX. Infection on right side Stated problem resolved with ABX. First time encountering this problem No urinary complaints, does hold urine at times due to work No pain or blood with ejaculation no hx of urinary infections Benign exam today Advised pt to wear scrotal support, such as a jockstrap to help support his scrotal, especially when he does strenuous activities. Also to take anti inflammatory medications for pain, and to ice his scrotal area as needed Timed voiding Pt to notify us if his symptoms recur Follow-up With When Contact Information Gemini Vasquez MD, URL, URO Only if needed Additional Instructions: PRN Patient Education Testicular Self-Exam Epididymitis I, Nicole Chaudhary, personally scribed for Dr. Vasquez on 03/26/2022 11:37:41. . Documentation recorded by the scribe, Nicole Chaudhary, accurately reflects the services(s) I performed and decisions made by me. Authenticated by Dr. Vasquez on 03/26/2022 12:08:07. Problem List/Past Medical History Ongoing No qualifying data Historical No qualifying data Procedure/Surgical History Colonoscopy. Medications Lyrica, Oral omeprazole, Oral, Daily Allergies No Known Allergies No Known Medication Allergies Social History Alcohol Current, Beer, Daily, 03/26/2022 Tobacco 5-9 cigarettes (between 1/4 to 1/2 pack)/day in last 30 days Tobacco Use:. Never Smokeless Tobacco Use:. Cigarettes, 03/26/2022 Immunizations Vaccine Date Status Comments SARS-CoV-2 mRNA (tozinameran 5y-11y) vac - Not Given Postpone due to refusal Lab Results Ambulatory Point of Care Results Bilirubin Urine Dipstick: Negative (03/26/22 10:53:00) Blood Urine Dipstick: Negative (03/26/22 10:53:00) Glucose Urine Dipstick: Negative (03/26/22 10:53:00) Ketones Urine Dipstick: Negative (03/26/22 10:53:00) Leukocytes Urine Dipstick: Negative (03/26/22 10:53:00) Nitrite Urine Dipstick: Negative (03/26/22 10:53:00) Protein Urine Dipstick: Negative (03/26/22 10:53:00) Specific [place] Urine Dipstick: 1.020 (03/26/22 10:53:00) Urine Appearance Urine Dipstick: Clear (03/26/22 10:53:00) Urine Color Urine Dipstick: Yellow (03/26/22 10:53:00) Urobilinogen Urine D (more content not included)... Normal [facility] Comment on above: Result Comment: Elec tronically Signed By: Gemini Vasquez MD\.br\Date and Time Signed: 03/26/22 12:08 EDT\.br\Electronically Co-Signed By: Nicole Chaudhary\.br\Date and Time Co-Signed: 03/26/22 11:38 EDT SURGICAL PATH REPORTon 09-28 SURGICAL PATH REPORT Normal [facility] Comment on above: Result Comment: DIAG NOSIS A and B RIGHT AND LEFT VAS DEFERENS, PARTIAL RESECTIONS: BENIGN, COMPLETE TRANSECTIONS OF BILATERAL VAS DEFERENS CPT 88406 X2 parrish/09/28/2018 Electronically Signed Out by Bryan Contreras M.D. NATURE OF SPECIMEN A: Left vas segment B: Right vas segment ICD-CM CODE(S) Z30.2 Encounter For Sterilization GROSS DESCRIPTION A The container is labeled Ricci Rodriges, left vas segment . Received in formalin is a single glistening mariano-white cord-like segment measuring 0.7 cm in length. Submitted in its entirety. One cassette. ns B The container is labeled Ricci Rodriges, right vas segment . Received in formalin is a single glistening mariano-white cord-like segment measuring 1.2 cm in length. Submitted in its entirety. One cassette. ns mg parrish/09/28/2018 MICROSCOPIC DESCRIPTION A Microscopic examination was performed. B Microscopic examination was performed. Pathology [employer]. [address] [place] [address] CLIA No. [id number] CAP Accreditation No. [id number] Conduit Mechanic: Edi Lynn M.D. [employer] Accession Number: [id number] Performed By: #### P L BIOPSY #### [address] [address] SURGICAL PATH REPORTon 09-24 Age at specimen collection = Normal [facility] Comment on above: Performed By: #### P L BIOPSY #### [address] [address] Vital Signs Date Time Vital Sign Value Performing Clinician Faci lity 09-16-2023 10:37-0500 Body height 193 cm Dylan Ontiveros MD Work Phone: [facility] 09-16-2023 10:37-0500 Body mass index (BMI) [Ratio] 32.62 kg/m2 Dylan Ontiveros MD Work Phone: [facility] 09-16-2023 10:37-0500 Body weight 121.56 kg Dylan Ontiveros MD Work Phone: [facility] 08-19-2023 15:12-0500 Body height 193 cm Haile Ravi MD Work Phone: [facility] 08-19-2023 15:12-0500 Body mass index (BMI) [Ratio] 32.62 kg/m2 Haile Ravi MD Work Phone: [facility] 08-19-2023 15:12-0500 Body weight 121.56 kg Haile Ravi MD Work Phone: [facility] 07-18-2022 10:30-0500 Body temperature 97.5 [degF] Mitul Jackson DPM Work Phone: [employer] 07-18-2022 10:30-0500 Diastolic blood pressure 83 mm[Hg] Mitul Jackson DPM Work Phone: [facility] 07-18-2022 10:30-0500 Heart rate 79 /min Mitul Nadiron DPM Work Phone: [facility] 07-18-2022 10:30-0500 Respiratory rate 13 /min Mitul Nadiron DPM Work Phone: [facility] 07-18-2022 10:30-0500 SaO2% (BldA) [Mass fraction] 94 % Mitul Nadiron DPM Work Phone: [facility] 07-18-2022 10:30-0500 Systolic blood pressure 136 mm[Hg] [facility]ul [facility]ne DPM [facility] 07-18-2022 06:31-0500 Body height 193 cm Mitul Nadiron DPM Work Phone: [facility] 07-18-2022 06:31-0500 Body mass index (BMI) [Ratio] 31.77 kg/m2 Mitul Jackson DPM Work Phone: [facility] 07-18-2022 06:31-0500 Body weight 118.39 kg Mitul Jackson DPM Work [facility] Encounters Encounter Date Encounter Type Care Provider Facility Start: 10-27-2023 End: 10-28-2023 ambulatory ESTEFANY IVERSON [facility] Start: 10-12-2023 End: 10-12-2023 ambulatory ESTEFANY LOPEZMAILEApril Not Available Start: 09-16-2023 End: 09-16-2023 ambulatory DYLAN ONTIVEROS [facility] Start: 09-16-2023 End: 09-16-2023 Office outpatient visit 15 minutes Dylan Ontiveros MD Work Phone: [facility] Comment on above: 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); Osteoarthritis of right ankle and foot; Acquired valgus deformity of right foot; Acquired valgus deformity of left foot; Bilateral foot pain Start: 08-19-2023 End: 08-19-2023 ambulatory HAILE RAVI [facility] Start: 08-19-2023 End: 08-19-2023 Office outpatient visit 15 minutes Haile Ravi MD Work Phone: [facility] Comment on above: Post-traumatic osteo arthritis of right knee (Primary Dx); Arthritis of left knee Start: 07-07-2023 End: 07-07-2023 ambulatory ESTEFANY ELADIOSukiCHELSEA Not Available Start: 07-18-2022 End: 07-21-2022 ambulatory ESTEFANY Mckenna ELADIOSukiCHELSEA [facility] Start: 07-18-2022 End: 07-20-2022 Subsequent hospital visit by physician Mitul Jackson DPM Work Phone: [facility] [facility] Comment on above: Post-operative state Start: 07-18-2022 End: 07-18-[address] [facility] Start: 07-18-2022 End: 07-18-2022 Subsequent hospital visit by physician Mitul Jackson DPM Work Phone: [facility] Comment on above: Post-operative state (Primary Dx); Post-op pain Start: 03-26-2022 End: 03-26-2022 Patient encounter procedure Gemini Vasquez [facility] Start: 09-24-2018 End: 09-24-2018 Patient encounter procedure YDLAN CRAWFORD Facility:[facility] Procedures Date Procedure Procedure Detail Performing Clinician Start: 08-19-2023 Arthrocentesis aspir &/inj major jt/bursa w/o us Haile Ravi MD Work Phone: Start: 07-18-2022 End: 07-18-2022 Radex foot complete minimum 3 views Malachi Morales DPM Work Phone: Start: 07-18-2022 Fluoroscopy during operation Mitul Jackson DPM Work Phone: Colonoscopy Gemini Vasquez Plan of Treatment Date Care Activity Detail Author Start: 12-27-2025 DTaP,Tdap and Td Vaccines (2 - Td or Tdap) DTaP,Tdap and Td Vaccines (2 - Td or Tdap) [facility] Start: 12-27-2025 DTaP/Tdap/Td vaccine (2 - Td or Tdap) DTaP/Tdap/Td vaccine (2 - Td or Tdap) [facility] Start: 09-16-2024 Adult BMI Screening Adult BMI Screen ing [facility] Start: 09-16-2024 Tobacco Screening Tobacco Screening [facility] Start: 08-19-2024 Adult BMI Screening Adult BMI Screen ing [facility] Start: 08-19-2024 Tobacco Screening Tobacco Screening [facility] Start: 03-07-2024 End: 03-07-2024 Patient encounter procedure 03/07/2024 3:10 PM EDT Office Visit [facility] [address] [place] [id number] Haile Ravi MD [address] [place] [address] [facility] Start: 12-07-2023 End: 12-07-2023 Patient encounter procedure 12/07/2023 3:20 PM EDT Office Visit [facility] [address] [facility] [place] [address] Haiel Ravi MD [address] [place] [address] [facility] Start: 04-03-2023 COVID-19 Vaccine () COVID-19 Vaccine () [facility] Start: 07-23-2022 End: 07-23-2022 Patient encounter procedure 07/23/2022 Office Visit Podiatry Mitul Jackson, DUNIA [address] [place], [place] [id number] [facility] Start: 07-18-2022 End: 07-18-2023 XR FOOT LEFT (MIN 3 VIEWS) [facility] Work Phone: Comment on above: Expected: 07/18/2022 , Expires: 07/18/2023 Start: 07-18-2022 End: 07-18-2023 XR FOOT RIGHT (MIN 3 VIEWS) [facility] Work Phone: Comment on above: Expected: 07/18/2022 , Expires: 07/18/2023 Start: 07-18-2022 End: 07-18-2022 Correction hammertoe FOOT ARTHRODESIS Hammer toes of both feet 07/18/2022 7:28 AM EST [facility] Start: 09-13-2021 COVID-19 Vaccine (4 - Booster for Pfizer series) COVID-19 Vaccine (4 - Booster for Pfizer series) [facility] Start: 11-06-2019 Screening for malign ant neoplasm of colon [facility] Start: 2014 Lipid panel Lipids [facility] [employer] Start: 2009 Diabetes screen [facility] Start: 1992 Adult BMI Follow Up Plan Adult BMI Follow Up Plan [facility] Start: 1992 Hepatitis C screening Hepatitis C sc reen [facility] [employer] Start: 1989 HIV screening HIV screen [facility] [employer] GAMALIEL [employer] Start: 1986 Depression Screen Depression Screen [facility] [employer] Start: 1986 Depression Screening Depression Scre ening [facility] [employer] [facility] End: 07-18-2022 INITIATE PACU OXYGEN THERAPY PROTOCOL Initiate PACU Oxygen Therapy Protocol Respiratory Care Routine Continuous until discontinued starting 07/18/2022 [facility] Work Phone: Comment on above: Continuous until dis continued starting 07/18/2022 Immunizations Immunization Date Immunization Notes Care Provider Jordan solitario 12-28-2015 tetanus toxoid, reduced diphtheria toxoid, and acellular pertussis vaccine, adsorbed Mitul Jackson DPM Work Phone: [facility] [employer] NEGATED: Highlighted row has not occurred!03-26-2022 SARS-CoV-2 mRNA (tozinameran 5y-11y) vaccine Gemini Vasquez [facility] Payers Date Payer Category Payer Unknown [employer] [id number] 2018-Present [phone] [address] [place] [address] [id number] 2014 Unknown [id number] 1974 Unknown [id number] 1974 Unknown [id number] 1974 Unknown [id number] 1974 Unknown [id number] 1974 Unknown [id number] 1974 Unknown [id number] 1974 Unknown [id number] 1974 Unknown [id number] 1974 Unknown [id number] 1974 Unknown [id number] 1974 Unknown [id number] Social History Date Type Detail Facility Start: 03-26-2022 Tobacco smoking status Light t obacco smoker (finding) [facility] Tobacco smoking status Never [facility] Start: 09-12-2020 End: 08-19-2023 Sex Assigned At Male [facility] Start: 07-18-2022 End: 05-13-2023 Tobacco smoking status NHIS Ex-smoker [employer] End: 06-03-2022 History of tobacco use Current smoker [employer] Phone: End: 06-03-2022 History of tobacco use Cigarette Smoker [employer] Phone: Start: 09-12-2020 End: 07-18-2022 Cigarettes smoked current (pack per day) - Reported 1 [employer] Phone: Start: 07-18-2022 End: 05-13-2023 Tobacco use and exposure Smokeless tobacco non-user [employer] Phone: Start: 07-18-2022 End: 09-16-2023 Alcohol intake Current drinker of alcohol (finding) [employer] Phone: Start: 1975 Sex Assigned At Not on file [facility] Phone: Start: 07-08-2022 End: 07-18-2022 Exposure to SARS-CoV-2 (event) Not sure [employer] Phone: Start: 07-05-2019 Alcohol Comment daily [facility] Medical Equipment Procedure Code Equipment Code Equipment Origin al Text Equipment Identifier Dates Screw Bne L30mm Dia2.5mm Stan Ft Ank Ti Self Drl [facility] - [id number] Start: 07-18-2022 Functional Status Date Assessment Result Facility 03-26-2022 Functional Status N/A [facility] Clinical Notes 03-26-2022 to 09-16-2023 Dylan Ontiveros MD - 09/16/2023 10:10 AM NATALEIDaayden Ravi MD - 08/19/2023 3:15 PM ESTDischarge Instructions Note Date & Type Note Facility 09-16-2023 History of Presen t illness Narrative [facility] Dylan Ontiveros MD Orth[facility] Surgery [facility] in Foot & Ankle Last Encounter with Me: new Last Encounter with Speciality: 08/19/2023 Haile Ravi MD Date of visit: 09/16/2023 Chief Complaint: Chief Complaint Patient presents with Right Foot - New Patient EN [place]AL FEET OK TGP PREVIOUS SX WITH DR. JACKSON. Patient states Both feet are always painful and the feel like they are collapsing in on him Left Foot - New Patient EN [place]HAZAL FEET [place] TGP PREVIOUS SX WITH DR. JACKSON HPI Ricci Rodriges is a 47 y.o. presents as a new patient to Dr. Ontiveros for years of bilateral foot pain. Right foot pain is worse than left. He previously had surgery with with podiatry in [place] for hammertoes bilaterally for which he had fusions of the PIP joint of the bilateral 2nd toes as well as tenotomies of the bilateral 3rd and 4th toes. He notes that this has not helped his pain significantly. He does have flat feet which has bothered him for years and he has tried inserts in his shoes. He also notes that he had an injection for his plantar fascia on the right years ago which she states was most helpful to him for the pain on the plantar surface of his feet. He has tried nighttime braces for his plantar fascia which she states he was unable to tolerate. He also notes he does have neuropathy and minimal sensation of his bilateral feet with an unknown cause as he is not a diabetic. Examination Exam: Exam of the legs show normal posterior tibial and dorsalis pedis pulses. Minimal sensation in all distributions of the foot with bilateral neuropathy . He has significant planovalgus deformities of the bilateral feet with collapse of the mid arch of the foot bilaterally with the right worse than left. He is also tender to palpation about the plantar fascia on the bilateral feet right worse than left. External notes reviewed: N/a Review of test/study reports: N/a My personal interpretation of tests: N/a Xrays ordered & done in office: X-ray foot right 3 views weight bearing Date xrays obtained :09/16/2023 Standing AP, lateral oblique of the right foot was obtained today. This shows evidence of fixation across the 2nd toe IP joint. Patient also noted to have subluxation 1st and 2nd tarsometatarsal joints. And also some talonavicular uncoverage. Patient is also noted to have some gapping along the plantar aspect of the TMT joints. X-ray foot left 3 views weight bearing Date xrays obtained :09/16/2023 Standing AP, lateral oblique of the left foot was obtained today. This shows patient to have well fused 2nd toe IP joint with a implant in place. Patient is also going to have fairly significant talonavicular uncoverage. There is some subluxation of the tarsometatarsal joints. The lateral view also shows fairly significant collapse of the arch with the medial cuneiform sitting well below the level of the 5th metatarsal. There is also plantar gapping along the 1st TMT joint region. Procedures in clinic today: None Assessment 47-year-old male with bilateral planovalgus foot deformities with collapse of the mid arch right worse than left along with with plantar fasciitis of the bilateral feet right worse than left. He also has neuropathy bilaterally of his feet, nondiabetic. Plan -UCBL insert on the right. -if this is helpful on the right well consider with the left side as well. -follow-up in 6-8 weeks. I, Dylan Ontiveros, personally performed the face to face evaluation on this patient. I discussed with the patient and confirmed the accuracy and completeness of the aforementioned history, and I personally performed the clinical examination of the patient. I have established and discusses the course of treatment with the patient and Physician Supervisor [facility]. The critical element of all procedures were performed by me. My examination, medical decision making and treatment plan are reflected above and are as follows: He is having pain along both of his feet. Mostly localized on the plantar aspect of his feet bilaterally. He would undergone hammertoe surgeries with the intention that that would help his pain but it actually did nothing for his pain. His pain is an activity-related type of discomfort the longer he is on it the more it bothers her. He said he has tried a variety of inserts without any significant relief with this. His examination shows patient have fairly significant collapse of the arch on standing. He does have some limitation of hindfoot motion. I believe a lot of his collapse is occurring through the midfoot region. We talked about trying a brace for him we are going to try to UCBL insert on the right side see what that does for him. I did discuss potential surgical options for him but he is still working and he does not feel like he can do that at the current time. documented in this encounter [employer] 08-19-2023 History of Presen t illness Narrative Associated Order(s): $ Large Joint Injection: bilateral knee Post-Procedure Diagnose(s): Post-traumatic osteoarthritis of right knee; Arthritis of left knee Chief Complaint: Chief Complaint Patient presents with Right Knee - Pain Right knee celestone injection 05/13/23, lasted about 3 months. Subjective History Ricci Rodriges is a 47 y.o. male who presents to the office today for his right knee. Patient has known right posttraumatic osteoarthritis. We did give him a cortisone injection on 05/13/2023 we also aspirated 30 cc of serosanguineous fluid. Patient stated that the injection did help. He would like to repeat the injection today. Patient states some of the fluid has come back. He is complaining of swelling and pain in the left knee as well. We did not inject the left knee at his last appointment. Objective History: Patient was alert and oriented x3, no apparent distress. On a focused exam of both knees is skin is clean dry and intact no signs of any infection. Patient has full extension of both knees. He can flex to about 115 . He is prior surgical scars on the right knee. Both knees have about 15 cc of fluid and him. Crepitation under both patellas. Medial joint line tenderness bilaterally. Nonantalgic gait neurovascularly intact distally. Stable varus valgus. XRAYS: No x-rays today Assessment: Ricci Rodriges is a 47 y.o. male right knee posttraumatic osteoarthritis, left knee arthritis Plan: We did not feel as though we needed to aspirate either of the knees today. The fluid is down from the last time we saw him. However, we are going to try a cortisone injection again on both knees today. Under sterile procedure we injected both knees with 2 cc Celestone 2 cc lidocaine. Tolerated this well. We will go ahead and see him back in 3 months. Patient was agreeable to this. All of his questions were answered. $ Large Joint Injection: bilateral knee on 08/19/2023 3:12 PM Indications: pain Details: 22 G needle, anterolateral approach Medications (Right): 12 mg betamethasone acet & sod phos 6 mg/mL Medications (Left): 12 mg betamethasone acet & sod phos 6 mg/mL Outcome: tolerated well, no immediate complications The patient was instructed to use ice, NSAIDs, or Tylenol for pain as needed. The patient will call with any signs or concerns. Procedure, treatment alternatives, risks and benefits explained, specific risks discussed. Patient was prepped and draped in the usual sterile fashion. I, Haile Ravi MD, personally performed the face to face evaluation on this patient. I discussed with the patient and confirmed the accuracy and completeness of the aforementioned history prepared by the [place] practice provider, and I personally performed the clinical examination of the patient. I discussed the treatment plan with the patient. Patient has bilateral knee osteoarthritis. The right knee is posttraumatic and moderate to severe. The left knee is more mild arthritis. We injected both knees today with cortisone. He had minimal effusion. We did not have to aspirate the knees. He tolerated the injections well. Plan is for three-month follow-up. Right knee would probably need knee replacement at some point in the future. documented in this encounter [facility] 07-18-2022 [facility] Discharg e instructions Malachi Kindra Morales, DPM - 07/18/2022 9:41 AM EST Podiatric Post Operative Instructions: You have had a surgical procedure on your bilateral foot. Fluids and Diet: Begin with clear liquids, broth, dry toast, and crackers. If not nauseated then resume your regular pre-operative diet when you are ready Medications: Take your prescriptions as directed You are receiving new prescriptions for Percocet If your pain is not severe then you may take the non-prescription medication that you normally take for aches and pains You may resume your regularly scheduled medications (unless otherwise directed) If any side effects or adverse reactions occur, discontinue the medication and contact your doctor. Review the patient drug information that is provided before you take any medication Ambulation and Activity: You are advised to go directly home from the hospital You may put weight on the operated foot. You should wear the surgical shoe at all times when awake. Avoid stairs if possible. Do not lift or move heavy objects Do not drive until cleared by your physician Bandage and Wound Care Instructions: Keep bandage clean and dry Do not shower or bathe the operative extremity Do not remove the bandage (unless otherwise directed) Do not attempt to put anything between the cast or dressing and your skin, some itching is normal. Ice and Elevation: Elevate operative extremity as much as possible to reduce swelling and discomfort. Elevate with 2 pillows at or above the level of the heart for the first 72 hours. Ice: Apply Hospital dispensed insulated ice bag over the bandage 20 minutes of every hour while awake for the first 72 hours. You may ice behind the knee as well. Special Instructions: Call your doctor immediately if you develop any of the following. Fever over 100.4 degrees Fahrenheit by mouth - take your temperature daily until your first follow up visit. Pain not relieved by medication ordered Swelling, increased redness, warmth, or hardness around operative area. Numb, tingling or cold toes. Toe(s) become white or bluish Bandage becomes wet, soiled, or blood soaked (small amount of bleeding may be normal) Increased or progressive drainage from surgical area. Follow up instructions: You will need to follow up with Dr. Mitul Jackson DPM Call when you get home to schedule or confirm your appointment. Call your [employer] office if you have any questions or concerns. documented in this encounter [employer] Phone: 03-26-2022 [facility] Patient Education 03/26/2022 11:37:18 Testicular Self-Exam Testicular Self-Exam A self-examination of your testicles (testicular self-exam) involves looking at and feeling your testicles for abnormal lumps or swelling. Several things can cause swelling, lumps, or pain in your testicles. Some of these causes are: Injuries. Inflammation. Infection. Buildup of fluids around your testicle (hydrocele). Twisted testicles (testicular torsion). Testicular cancer. Why is it important to do a testicular self-exam? Self-examination of the testicles and the left and right groin areas may be recommended if you are at risk for testicular cancer. Your groin is where your lower abdomen meets your upper thighs. You may be at risk for testicular cancer if you have: An undescended testicle (cryptorchidism). A history of previous testicular cancer. A family history of testicular cancer. How to do a testicular self-exam The testicles are easiest to examine after a warm bath or shower. They are more difficult to examine when you are cold. This is because the muscles attached to the testicles retract and pull them up higher or into the abdomen. A normal testicle is egg-shaped and feels firm. It is smooth and not tender. The spermatic cord can be felt as a firm, spaghetti-like cord at the back of your testicle. Look and feel for changes Stand and hold your penis away from your body. Look at each testicle to check for lumps or swelling. Roll each testicle between your thumb and forefinger, feeling the entire testicle. Feel for: ?Lumps. ?Swelling. ?Discomfort. Check the groin area between your abdomen and upper thighs on both sides of your body. Look and feel for any swelling or bumps that are tender. These could be enlarged lymph nodes. Contact a health care provider if: You find any bumps or lumps, such as a small, hard, pea-sized lump. You find swelling, pain, or soreness. You see or feel any other changes in your testicles. Summary A self-examination of your testicles (testicular self-exam) involves looking at and feeling your testicles for any changes. Self-examination of the testicles and the left and right groin areas may be recommended if you are at risk for testicular cancer. You should check each of your testicles for lumps, swelling, or discomfort. You should check for swelling or tender bumps in your groin area between your lower abdomen and upper thighs. This information is not intended to replace advice given to you by your health care provider. Make sure you discuss any questions you have with your health care provider. Document Released: 10/26/2001 Document Revised: 11/10/2019 Document Reviewed: 06/15/2017 [employer] Patient Education 2020 [employer]. 03/26/2022 11:30:12 Epididymitis Epididymitis Epididymitis is swelling (inflammation) or infection of the epididymis. The epididymis is a cord-like structure that is located along the top and back part of the testicle. It collects and stores sperm from the testicle. This condition can also cause pain and swelling of the testicle and scrotum. Symptoms usually start suddenly (acute epididymitis). Sometimes epididymitis starts gradually and lasts for a while (chronic epididymitis). This type may be harder to treat. What are the causes? In men ages 20 40, this condition is usually caused by a bacterial infection or a sexually transmitted disease (STD), such as: Gonorrhea. Chlamydia. In men 40 and older who do not have anal sex, this condition is usually caused by bacteria from a blockage or from abnormalities in the urinary system. These can result from: Having a tube placed into the bladder (urinary catheter). Having an enlarged or inflamed prostate gland. Having recently had urinary tract surgery. Having a problem with a backward flow of urine (retrograde). In men who have a condition that weakens the body's defense system (immune system), such as HIV, this condition can be caused by: Other bacteria, including tuberculosis and syphilis. Viruses. Fungi. Sometimes this condition occurs without infection. This may happen because of trauma or repetitive activities such as sports. What increases the risk? You are more likely to develop this condition if you have: Unprotected sex with more than one partner. Anal sex. Recently had surgery. A urinary catheter. Urinary problems. A suppressed immune system. What are the signs or symptoms? This condition usually begins suddenly with chills, fever, and pain behind the scrotum and in the testicle. Other symptoms include: Swelling of the scrotum, testicle, or both. Pain when ejaculating or urinating. Pain in the back or abdomen. Nausea. Itching and discharge from the penis. A frequent need to pass urine. Redness, increased warmth, and tenderness of the scrotum. How is this diagnosed? Your health care provider can diagnose this condition based on your symptoms and medical history. Your health care provider will also do a physical exam to ask about your symptoms and check your scrotum and testicle for swelling, pain, and redness. You may also have other tests, including: Examination of discharge from the penis. Urine tests for infections, such as STDs. Ultrasound test for blood flow and inflammation. Your health care provider may test you for other STDs, including HIV. How is this treated? Treatment for this condition depends on the cause. If your condition is caused by a bacterial infection, oral antibiotic medicine may be prescribed. If the bacterial infection has spread to your blood, you may need to receive IV antibiotics. For both bacterial and nonbacterial epididymitis, you may be treated with: Rest. Elevation of the scrotum. Pain medicines. Anti-inflammatory medicines. Surgery may be needed to treat: Bacterial epididymitis that causes pus to build up in the scrotum (abscess). Chronic epididymitis that has not responded to other treatments. Follow these instructions at home: Medicines Take [id number] and prescription medicines only as told by your health care provider. If you were prescribed an antibiotic medicine, take it as told by your health care provider. Do not stop taking the antibiotic even if your condition improves. Sexual activity If your epididymitis was caused by an STD, avoid sexual activity until your treatment is complete. Inform your sexual partner or partners if you test positive for an STD. They may need to be treated. Do not engage in sexual activity with your partner or partners until their treatment is completed. Managing pain and swelling If directed, elevate your scrotum and apply ice. ?Put ice in a plastic bag. ?Place a small towel or pillow between your legs. ?Rest your scrotum on the pillow or towel. ?Place another towel between your skin and the plastic bag. ?Leave the ice on for 20 minutes, 2 3 times a day. Try taking a sitz bath to help with discomfort. This is a warm water bath that is taken while you are sitting down. The water should only come up to your hips and should cover your buttocks. Do this 3 4 times per day or as told by your health care provider. Keep your scrotum elevated and supported while resting. Ask your health care provider if you should wear a scrotal support, such as a jockstrap. Wear it as told by your health care provider. General instructions Return to your normal activities as told by your health care provider. Ask your health care provider what activities are safe for you. Drink enough fluid to keep your urine pale yellow. Keep all follow-up visits as told by your health care provider. This is important. Contact a health care provider if: You have a fever. Your pain medicine is not helping. Your pain is getting worse. Your symptoms do not improve within 3 days. Summary Epididymitis is swelling (inflammation) or infection of the epididymis. This condition can also cause pain and swelling of the testicle and scrotum. Treatment for this condition depends on the cause. If your condition is caused by a bacterial infection, oral antibiotic medicine may be prescribed. Inform your sexual partner or partners if you test positive for an STD. They may need to be treated. Do not engage in sexual activity with your partner or partners until their treatment is completed. Contact a health care provider if your symptoms do not improve within 3 days. This information is not intended to replace advice given to you by your health care provider. Make sure you discuss any questions you have with your health care provider. Document Released: 07/17/2001 Document Revised: 05/23/2019 Document Reviewed: 05/24/2019 [employer] Patient Education 2020 WSO2. Follow Up Care 02/28/2022 10:12:45 With:Pedro RDZ, Gemini Gregorio, URAriadna, URO Address: When: only if needed Comments:PRN [facility] Evaluation + Plan note No data available for this section [facility] Evaluation note Diagnosis Post-operative state- Primary Other postprocedural status Post-operative state Other postprocedural status Post-op pain Other acute postoperative pain Hammertoe of second toe of right foot Hammertoe of second toe of left foot Pain in left foot Pain in limb Pain in right foot Pain in limb Contracture, foot, right Contracture, foot, left documented in this encounter [employer] Phone: [email or web address] note* Diagnosis Post-operative state Other postprocedural status documented in this encounter [employer] Phone: [email or web address] note* Diagnosis Post-traumatic osteoarthritis of right knee- Primary Arthritis of left knee documented in this encounter [employer] SystemEvaluation note* Diagnosis Osteoarthritis of left ankle and foot- Primary Osteoarthritis of right ankle and foot Acquired valgus deformity of right foot Acquired valgus deformity of left foot Bilateral foot pain Bilateral foot pain Bilateral foot pain documented in this encounter ProMF[facility] SystemInstructionsNot on filedocumented in this encounter ProMFulham SystemInstructionsNot on filedocumented in this encounter [employer] SystemProgress note No data available for this section [facility] Mobile [employer] Services Summary Purpose Family History No Family History Records FoundNo Family History Records FoundNo Family History Records FoundNo Family History Records FoundNo Family History Records FoundNo Family History Records FoundNo Family History Records Found Advance Directives No Advanced Directives Records FoundLatest Code Status on File Code Status Date Activated Date Inactivated Comments Full Code 12/28/2015 6:32 PM 01/01/2016 8:11 AM Additional Source Comments (unrecognized sect ion and content) No Status Records FoundNo Status Records FoundNo Status Records FoundNo Status Records FoundNo Status Records FoundNo Status Records FoundNo Status Records Found INFORMATION SOURCE (unrecogn ized section and content) DATE CREATED AUTHOR 10/08/2018 [facility] DATE CREATED AUTHOR AUTHOR'S ORGANIZ ATION 03/27/2022 Jesus Yvon [facility] DATE CREATED AUTHOR AUTHOR'S ORGANIZ ATION [facility]/24/20[facility] DATE CREATED AUTHOR AUTHOR'S ORGANIZ ATION 12/15/2022 [facility] dical Specialist DATE CREATED AUTHOR AUTHOR'S ORGANIZ ATION 09/18/2023 [facility] DATE CREATED AUTHOR AUTHOR'S ORGANIZ ATION 10/13/2023 [facility] dical Specialists EPIC DATE CREATED AUTHOR AUTHOR'S ORGANIZ ATION 10/28/2023 [facility] Care Team (unrecognized sect ion and content) Management Recruiter Relationship Specialty Start Date End Date Estefany Iverson [address] [address] PCP - General Nurse Practitioner 07/14/22 Management Recruiter Relationship Specialty Start Date End Date Estefany Iverson [address] [address] PCP - General Nurse Practitioner 07/14/22 Management Recruiter Relationship Specialty Start Date End Date Estefany Iverson APRN-RADIO TESTER [address] [place] [id number] PCP - General Nurse Practitioner 02/27/22 Management Recruiter Relationship Specialty Start Date End Date Estefany Iverson, ANTHONY-RADIO TESTER [address] [place] [phone] PCP - General Nurse Practitioner 02/27/22 Reason for Visit (unrecogniz ed section and content) Specialty Diagnoses / Procedures Referred By Anuradha kang Referred To Contact Diagnoses Hammer toes of both feet Hammer toes of both feet [M20.41, M20.42] Procedures NE REPAIR OF HAMMERTOE,ONE RIGHT 2ND HAMMERTOE ARTHRODESIS RIGHT 2,3 AND 4 FLEXOR TENDONOTOMY LEFT 2-4 FLEXOR TENDONOTOMY - TRIMMET PIN ARTHREX VS SCREWS Mitul Jackson DPM [address] [place] [address] [facility] [address] [place] [address] Referral ID Status Reason Start Date Expiration Date Visits Re quested Visits Authorized [id number] 1 1 Reason Comments Pain Right knee celestone injection 05/13/23, lasted about 3 months. Aspiration done 05/13/23. Reason Comments New Patient EN GHAZAL FEET OK TGP P REVIOUS SX WITH DR. JACKSON. Patient states Both feet are always painful and the feel like they are collapsing in on him New Patient EN GHAZAL FEET OK TGP P REVIOUS SX WITH DR. JACKSON Ordered Prescriptions (unrec ognized section and content) Prescription Sig Dispensed Refills Start Date End Da te oxyCODONE-acetaminophen (PERCOCET) 5-325 MG per tabletIndications:Post-o perative state,Post-op pain Take 1 tablet by mouth every 6 hours as needed for Pain for up to 5 days. Intended supply: 5 days. Take lowest dose possible to manage pain 20 tablet 0 07/18/2022 07/23/2022 Scheduled Active and Recently Administ ered Medications (unrecognized section and content) Medication Order 07/16/2022 07/17/2022 07/18/2022 ceFAZolin (ANCEF) 2000 mg in dextrose 5 % 50 mL IVPB (COMPLETED) 2,000 mg, IntraVENous, ONCE, 1 dose, On Thu07/18/22 at 0700, Antimicrobial Indications: Surgical Prophylaxis, Pre-op (day of surgery), STAT 0745 (Given - Provid er: Estefany French, [employer] MACHINE TENDER - INSTITUTION LIBRARIAN) sodium chloride flush 0.9 % injection 5-40 mL 5-40 mL, IntraVENous, EVERY 12 HOURS SCHEDULED (2 times per day), First dose on Thu07/18/22 at 0930, Until Discontinued, For Line Patency: Peripheral IV = 5 mL; Midline or Central Line = 10 mL/lumen. If following IV push medication, administer flush at same rate as the IV push. Flush volume is determined by type of infusion therapy being given. For non-viscous solutions use: Peripheral IV = 5 mL Midline or Central Line = 10 mL/lumen For viscous solutions (i.e. blood components, parenteral nutrition, contrast media, or after obtaining blood sample) use: Peripheral IV = 10 mL Midline or Central Line = 20 mL/lumen, PACU only 0930 (Due)2100 (Due) Continuous Medication Order 07/16/2022 07/17/2022 07/18/2022 lactated ringers infusion IntraVENous, at 100 mL/hr, CONTINUOUS, Starting on Thu07/18/22 at 0700, Pre-op (day of surgery) 0640 (New Bag - Prov ider: Anika Orosco RN) PRN Medication Order 07/16/2022 07/17/2022 07/18/2022 0.9 % sodium chloride infusion IntraVENous, at 5-250 mL/hr, PRN, if patient receiving piggyback infusions and maintenance fluids are not ordered OR KVO fluids to protect IV site / prevent frequent line interruptions/ long duration, Starting on Thu07/18/22 at 0909, For piggyback infusion, administer at same rate as piggyback for a total of 25 mL. Enter 25 mL into dose field and piggyback rate into rate field of order. If piggyback is infusing at a rate less than 100 mL/hr, enter 25 mL into dose field and 100 mL/hr into rate field of order. For KVO fluids, enter rate of 20 mL/hr or less into rate field of order., PACU only bupivacaine (MARCAINE) 10 mL, lidocaine 1 % 10 mL (CANCELED) PRN, Starting on Thu07/18/22 at 0742, Intra-op 0742 (Given - Provid er: Lisa Simpson DPM - Comment: 10ML IN EACH FOOT) HYDROmorphone HCl PF (DILAUDID) injection 0.5 mg HYDROmorphone (DILAUDID) 1.5mg IV is equivalent to morphine 10mg IV, 0.5 mg, IntraVENous, EVERY 5 MIN PRN, 4 doses, Starting on Thu07/18/22 at 0909, Until Discontinued, Pain Severe (7-10), Pain Moderate (4-6), For Phase I. If Phase II oral narcotics have been administered in the last 60 minutes, do not administer IV narcotics unless specifically approved by provider., PACU only labetalol (NORMODYNE;TRANDATE) injection 10 mg 10 mg, IntraVENous, EVERY 15 MIN PRN, 2 doses, Starting on Thu07/18/22 at 0909, Until Discontinued, High Blood Pressure, for SBP greater than 180 mmHg for 2 consecutive measurements taken from different sites. Hold if HR <60/min., Inform provider if SBP is still greater than 180 mmHg, 10 minutes after second antihypertensive dose is administered., PACU only ondansetron (ZOFRAN) injection 4 mg 4 mg, IntraVENous, ONCE PRN, 1 dose, Starting on Thu07/18/22 at 0909, Until 07/19/22 at 0909, Nausea, Secondary antiemetic therapy., PACU only oxyCODONE (ROXICODONE) immediate release tablet 5 mg 5 mg, Oral, ONCE PRN, 1 dose, Starting on Thu07/18/22 at 0909, Until 07/19/22 at 0909, Pain Moderate (4-6), Pain Severe (7-10), PHASE II, PACU only prochlorperazine (COMPAZINE) injection 5 mg 5 mg, IntraVENous, ONCE PRN, 1 dose, Starting on Thu07/18/22 at 0909, Until 07/19/22 at 0909, Nausea, Initial antiemetic therapy., PACU only sodium chloride flush 0.9 % injection 5-40 mL 5-40 mL, IntraVENous, PRN, Starting on Thu07/18/22 at 0909, Until Discontinued, Line Care, After every IV line use, For Line Patency: Peripheral IV = 5 mL; Midline or Central Line = 10 mL/lumen. If following IV push medication, administer flush at same rate as the IV push. Flush volume is determined by type of infusion therapy being given. For non-viscous solutions use: Peripheral IV = 5 mL Midline or Central Line = 10 mL/lumen For viscous solutions (i.e. blood components, parenteral nutrition, contrast media, or after obtaining blood sample) use: Peripheral IV = 10 mL Midline or Central Line = 20 mL/lumen, PACU only FOR RECORDS PERTAINING TO PATIENTS WHO ARE OR HAVE BEEN ENROLLED IN A CHEMICAL DEPENDENCY/SUBSTANCEABUSE PROGRAM, SOME INFORMATION MAY BE OMITTED. This clinical summary was aggregated from multiple sources. Caution should be exercised in using it in the provision of clinical care. This summary normalizes information from multiple sources, and as a consequence, information in this document may materially change the coding, format and clinical context of patient data. In addition, data may be omitted in some cases. CLINICAL DECISIONS SHOULD BE BASED ON THE PRIMARY CLINICAL RECORDS. [employer] [facility] provides no warranty or guarantee of the accuracy or completeness of information in this document.
== END 2023-10-28 15:37 | disposition home or self-care (01) ==
LOC: SLEEP 15:36
PROVIDERS: PCP Nurse Practitioner; Visit Provider Nurse Practitioner
DX: G47.33 Obstructive sleep apnea (adult) (pediatric) (principal)
CPT/HCPCS: 95806

== ENCOUNTER 2023-11-03 19:49 | Outpatient (OUT) | payer OTHER, SELFPAY ==
--- OUTSIDE RECORDS SUMMARY | 2023-11-03 19:53 | XMS_ITS | CCD ---
Author Organization [facility] Care Team Providers Care Bucket Turner Name Role Phone DYLAN CRAWFORD Attending Unavail able NONE PER PATIENT, . Primary Care Unavailable ESTEFANY IVERSON Primary Care Physician [phone] Estefany Iverson. Primary Care Provider [phone] MITUL JACKSON Attending Unavailable MITUL JACKSON Admitting Unavailable ESTEFANY IVERSON. Primary Care Unavailable ESTEFANY IVERSON. Primary Care Unavailable MITUL JACKSON Attending Unavailable ESTEFANY IVERSON. Primary Care Unavailable MITUL JACKSON Attending Unavailable Eladiohchelsea QA REVIEWEREstefany RUANO Primary Care Provider HAILE RAVI Attending Unavailable ESTEFANY IVERSON Referring Unavailable DEYSI ESTEFANY J Primary Care Unavailable DYLAN ONTIVEROS Attending Unavailable ESTEFANY IVERSON Referring Unavailable DEYSI ESTEFANY J Primary Care Unavailable DYLAN ONTIVEROS Referring Unavailable ESTEFANY IVERSON Primary Care Unavailable ESTEFANY IVERSON Attending Unavailable ESTEFANY IVERSON Attending Unavailable [...] ABSOLUTE BASOPHIL 0.0 X10E9/L Normal 0.0-0.2 [facility] Comment on above: Performed By: #### C BCA, 2857-1, CMP, 58828-2 #### [facility] ([id number]) [address], [address] [place] [address] ABSOLUTE NEUTROPHIL 4.9 X10E9/L Normal 1.5-6.6 [facility] Comment on above: Performed By: #### Jeremy BCA, 2857-1, CMP, 42342-4 #### [facility] ([id number]) [address], [address] [place] [address] Basophils/100 WBC (Bld) 0.4 % Normal [facility] Comment on above: Performed By: #### Jeremy BCA, 2857-1, CMP, 42205-0 #### [facility] ([id number]) [address], [address] [place] [address] Eosinophils (Bld) [#/Vol] 0.2 10*3/uL Normal 0.0-0.4 [facility] Comment on above: Performed By: #### Jeremy BCA, 2857-1, CMP, 33744-2 #### [facility] ([id number]) [address], [address] [place] [address] Eosinophils/100 WBC (Bld) 2.1 % Normal [facility] Comment on above: Performed By: #### Jeremy BCA, 2857-1, CMP, 89382-9 #### [facility] ([id number]) [address], [address] [place] [address] Erythrocyte distribution width (RBC) [Ratio] 14.0 % Normal 11.5-15.0 [facility] Comment on above: Performed By: #### Jeremy BCA, 2857-1, CMP, 52636-3 #### [facility] ([id number]) [address], [address] [place] [address] Hematocrit (Bld) [Volume fraction] 46.2 % Normal 39-49 [facility] Comment on above: Performed By: #### Jeremy BCA, 2857-1, CMP, 06022-6 #### [facility] ([id number]) [address], [address] [place] [address] Hemoglobin (Bld) [Mass/Vol] 15.1 g/dL Normal 13.0-17.0 [facility] Comment on above: Performed By: #### Jeremy REA, 2857-1, CMP, 64848-1 #### [facility] ([id number]) [address], [address] [place] [address] Lymphocytes (Bld) [#/Vol] 1.6 10*3/uL Normal 1.0-3.5 [facility] Comment on above: Performed By: #### Jeremy REA, 2857-1, CMP, 42550-2 #### [facility] ([id number]) [address] [place] [address] Lymphocytes/100 WBC (Bld) 22.1 % Normal [facility] Comment on above: Performed By: #### Jeremy REA, 2857-1, CMP, 52110-4 #### [facility] ([id number]) [address], [address] [place] [address] MCH (RBC) [Entitic mass] 29.6 pg Normal 27-34 [facility] Comment on above: Performed By: #### Jeremy BCA, 2857-1, CMP, 02531-4 #### [facility] ([id number]) [address], [address] [place] [address] MCHC (RBC) [Mass/Vol] 32.6 g/dL Normal 32-36 [facility] Comment on above: Performed By: #### Jeremy BCA, 2857-1, CMP, 47890-1 #### [facility] ([id number]) [address], [address] [place] [address] MCV (RBC) [Entitic vol] 91 fL Normal 80-100 [facility] Comment on above: Performed By: #### Jeremy BCA, 2857-1, CMP, 43423-2 #### [facility] ([id number]) [address], [address] [place] [address] Monocytes (Bld) [#/Vol] 0.6 10*3/uL Normal 0-0.9 [facility] Comment on above: Performed By: #### Jeremy BCA, 2857-1, CMP, 07456-9 #### [facility] ([id number]) [address], [address] [place] [address] Monocytes/100 WBC (Bld) 8.6 % Normal [facility] Comment on above: Performed By: #### Jeremy BCA, 2857-1, CMP, 44291-1 #### [facility] ([id number]) [address], [address] [place] [address] Neutrophils/100 WBC (Bld) 66.8 % Normal [facility] Comment on above: Performed By: #### Jeremy BCA, 2857-1, CMP, 74855-4 #### [facility] ([id number]) [address], [address] [place] [address] Platelet mean volume (Bld) [Entitic vol] 7.9 fL Normal 7-12 [facility] Comment on above: Performed By: #### Jeremy BCA, 2857-1, CMP, 50073-9 #### [facility] ([id number]) [address], [address] [place] [address] Platelets (Bld) [#/Vol] 296 10*3/uL Normal 150-450 [facility] Comment on above: Performed By: #### Jeremy BCA, 2857-1, CMP, 98778-2 #### [facility] ([id number]) [address], [address] [place] [address] RBC COUNT 5.08 X10E12/L Normal 4.10-5.70 [facility] Comment on above: Performed By: #### C BCA, 2857-1, CMP, 16809-7 #### [facility] ([id number]) [address], [address] [place] [address] WBC (Bld) [#/Vol] 7.3 10*3/uL Normal 4.0-11.0 [facility] Comment on above: Performed By: #### C BCA, 2857-1, CMP, 33417-9 #### [facility] ([id number]) [address], [address] [place] [address] COMPREHENSIVE METABOLIC PANE Evan 10-27-2023 Albumin [Mass/Vol] 4.1 g/dL Normal 3.2-5.3 [facility] Comment on above: Performed By: #### C BCA, 2857-1, CMP, 69571-3 #### [facility] ([id number]) [address], [address] [place] [address] ALP [Catalytic activity/Vol] 59 U/L Normal 39-130 [facility] Comment on above: Performed By: #### C BCA, 2857-1, CMP, 33235-1 #### [facility] ([id number]) [address], [address] [place] [address] ALT [Catalytic activity/Vol] 37 U/L Normal 0-40 [facility] Comment on above: Performed By: #### C BCA, 2857-1, CMP, 62931-4 #### [facility] ([id number]) [address], [address] [place] [address] Anion gap [Moles/Vol] 11 mmol/L Normal 5-15 [facility] Comment on above: Performed By: #### C BCA, 2857-1, CMP, 01714-4 #### [facility] ([id number]) [address], [address] [place] [address] AST [Catalytic activity/Vol] 42 U/L High 0-41 [facility] Comment on above: Performed By: #### C BCA, 2857-1, CMP, 44441-0 #### [facility] ([id number]) [address], [address] [place] [address] Bilirubin [Mass/Vol] 0.9 mg/dL Normal 0.3-1.2 [facility] Comment on above: Performed By: #### C BCA, 2857-1, CMP, 07411-7 #### [facility] ([id number]) [address], [address] [place] [address] Calcium [Mass/Vol] 9.0 mg/dL Normal 8.5-10.5 [facility] Comment on above: Performed By: #### C BCA, 2857-1, CMP, 68321-0 #### [facility] ([id number]) [address], [address] [place] [address] Chloride [Moles/Vol] 99 mmol/L Normal 98-109 [facility] Comment on above: Performed By: #### C BCA, 2857-1, CMP, 24432-5 #### [facility] ([id number]) [address], [address] [place] [address] CO2 [Moles/Vol] 27 mmol/L Normal 22-32 [facility] Comment on above: Performed By: #### C BCA, 2857-1, CMP, 85430-3 #### [facility] ([id number]) [address], [address] [place] [address] Creatinine [Mass/Vol] 0.95 mg/dL Normal 0.60-1.30 [facility] Comment on above: Result Comment: METH OD TRACEABLE TO IDMS STANDARD Performed By: #### C BCA, 2857-1, CMP, 10342-5 #### [facility] ([id number]) [address], [address] [place] [address] eGFR (CKD-EPI) NON-RACE DEPENDENT >90 Normal >59 [facility] Comment on above: Result Comment: Reported eGFR is based on the CKD-EPI 2020 equation that does not use a race coefficient. Performed By: #### C BCA, 2857-1, CMP, 98021-5 #### [facility] ([id number]) [address], [facility] [address] [place] [address] Glucose [Mass/Vol] 96 mg/dL Normal 65-99 [facility] Comment on above: Performed By: #### C BCA, 2857-1, CMP, 04529-0 #### [facility] ([id number]) [address] [address] [place] [address] Potassium [Moles/Vol] 3.9 mmol/L Normal 3.5-5.0 [facility] Comment on above: Performed By: #### C BCA, 2857-1, CMP, 05015-4 #### [facility] ([id number]) [address] [address] [place] [address] Protein [Mass/Vol] 6.3 g/dL Normal 6.0-8.0 [facility] Comment on above: Performed By: #### C BCA, 2857-1, CMP, 19240-6 #### [facility] ([id number]) [address] [address] [place] [address] Sodium [Moles/Vol] 137 mmol/L Normal 134-146 [facility] Comment on above: Performed By: #### C BCA, 2857-1, CMP, 48678-5 #### [facility] ([id number]) [address] [address] [place] [address] Urea nitrogen [Mass/Vol] 9 mg/dL Normal 5-23 [facility] Comment on above: Performed By: #### C BCA, 2857-1, CMP, 37458-1 #### [facility] ([id number]) [address], [address] [place] [address] Lipid 1996 panelon 4 Cholesterol [Mass/Vol] 168 mg/dL Normal 150-200 [facility] Comment on above: Performed By: #### Jeremy BCA, 2857-1, CMP, 05242-8 #### [facility] ([id number]) [address], [address] [place] [address] Cholesterol in HDL [Mass/Vol] 68 mg/dL Normal >39 [facility] Comment on above: Result Comment: HDL <40 mg/dL - High Risk HDL > or = 40mg/dL- Desirable HDL >60 mg/dL - Negative Risk Performed By: #### Jeremy BCA, 2857-1, CMP, 91712-1 #### [facility] ([id number]) [address], [address] [place] [address] Cholesterol in LDL [Mass/Vol] 80 mg/dL Normal <130 [facility] Comment on above: Result Comment: LDL <100 mg/dL - Desirable LDL >160 mg/dL - High Risk Performed By: #### Jeremy BCA, 2857-1, CMP, 21578-8 #### [facility] ([id number]) [address] [place] [address] Cholesterol in VLDL [Mass/Vol] 20 mg/dL Normal 0-30 [facility] Comment on above: Performed By: #### Jeremy BCA, 2857-1, CMP, 90590-2 #### [facility] ([id number]) [address], [address] [place] [address] CHOLESTEROL:HDL 2.5 Normal 1.0-5.0 [facility] Comment on above: Performed By: #### C BCA, 2857-1, CMP, 48464-2 #### [facility] ([id number]) [address], [address] [place] [address] Triglyceride [Mass/Vol] 102 mg/dL Normal 27-150 [facility] Comment on above: Performed By: #### C BCA, 2857-1, CMP, 08859-8 #### [facility] ([id number]) [address], [address] [place] [address] Prostate specific Ag [Mass/V ol]on 10-27-2023 PROSTATIC SPEC ANT 0.11 ng/mL Normal 0.00-4.00 [facility] Comment on above: Result Comment: The method used for this test is Makenna BrainSINS DXI chemiluminescent immunoassay. Values obtained by different assay methods cannot be used interchangeably. Performed By: #### C BCA, 2857-1, [facility], 60750-6 #### [facility] ([id number]) [address] [place] [address] XR Foot - right 3 Views W [...] of the TMT joints. MANUALLY TRANSCRIBED RES[facility] Study observation (narrative) [facility] XR Foot 3 Views W standingon [...] 1st TMT joint region. MANUALLY TRANSCRIBED RESULTS [facility] Radiology Study observation (narrative) [facility] $ Large Joint Injection: ghazal ateral [...] the usual sterile fashion. MANUALLY TRANSCRIBED RESULTS [facility]/o Righton 023 MRI Knee [...] by Kiran Jarrett on 12/14/2022 1346 Normal [facility] Capacitor Repairer FLUORO FOR SURGICAL PROCEDUR ESon 07-18-2022 FLUORO FOR SURGICAL PROCEDURES Radiology exam is complete. No Radiologist dictation. Please follow up with ordering provider. Final result Normal [facility] Radiology exam is complete. No Radiologist dictation. Please follow up with ordering provider. [facility] XR FOOT LEFT (MIN 3 VIEWS)on [...] Reyes Palacios MD 07/18/22 Final result Normal [facility] No hardware complications postoperatively [facility] EXAMINATION: THREE XRAY VIEWS OF THE LEFT FOOT 07/18/2022 10:19 am COMPARISON: 05/05/2022 HISTORY: ORDERING SYSTEM PROVIDED HISTORY: Post-operative state TECHNOLOGIST PROVIDED HISTORY: Reason for Exam: Post op state, left second hammertoe arthrodesis. FINDINGS: Status post arthrodesis across the 2nd PIP joint. Anatomic alignment. No hardware complications. [facility] Reyes Palacios MD - 07/18/2022 EXAMINATION: THREE XRAY VIEWS OF THE LEFT FOOT 07/18/2022 10:19 am COMPARISON: 05/05/2022 HISTORY: ORDERING SYSTEM PROVIDED HISTORY: Post-operative state TECHNOLOGIST PROVIDED HISTORY: Reason for Exam: Post op state, left second hammertoe arthrodesis. FINDINGS: Status post arthrodesis across the 2nd PIP joint. Anatomic alignment. No hardware complications. IMPRESSION: No hardware complications postoperatively [employer] Phone: Radiology Study observation (narrative) [employer] Phone: XR FOOT LEFT (MIN 3 VIEWS)Or dered By: Reyes Palacios on 07-18-2022 CECI SUGEY [facility] [employer] Work Phone: XR FOOT RIGHT (MIN 3 [...] Dylan Llanes MD 07/18/22 Final result Normal [facility] Arthrodesis of the proximal or phalangeal joint of the 2nd toe with screw in place and unchanged in appearance or alignment. No acute abnormality or significant changes noted otherwise. [facility] EXAM: XR Right Foot Complete, 3 [...] No acute findings. No radiopaque foreign body. [facility] Dylan Llanes MD - 07/18/2022 EXAM: [...] acute abnormality or significant changes noted otherwise. [employer] Phone: Radiology Study observation (narrative) [employer] Phone: XR FOOT RIGHT (MIN 3 VIEWS)O rdered By: Dylan Llanes on 07-18-2022 [employer] [facility] [employer] Work Phone: [employer] 03-27-2022 Forms [id number] .00CD:127 Normal [facility] Physician Referralon 022 Physician Referral [id number]#1. 00CD:127 Normal [facility] [employer] 03-27-2022 Screens [id number]#1. 00CD:127 Normal [facility] Screens [id number]#1. 00CD:127 Normal [facility] Ambulatory Visit Summaryon 0 03-26-2022 Ambulatory Visit Summary RICCI RODRIGES :1975 Visit Date:03/26/2022 Ambulatory Visit Instructions Your Diagnosis Epididymitis Tests Performed Urnls Dip Stick Auto w/o Microscopy POC 47319 Your Care Team Attending Physician - Pedro [...] Urnls Dip Stick Auto w/o Microscopy POC 88376 (03/26/2022) Bilirubin Urine Dipstick - Negative Blood Urine Dipstick - Negative Glucose Urine Dipstick - Negative Ketones Urine Dipstick - Negative Leukocytes Urine Dipstick - Negative Nitrite Urine Dipstick - Negative Protein Urine Dipstick - Negative Specific [place] Urine Dipstick - 1.020 Urine Appearance Urine [...] 10/26/2001 Document Revised: 11/10/2019 Document Reviewed: 06/15/2017 [employer] Patient Education ? 2020 [employer] Epididymitis Epididymitis is swelling (inflammation) or [...] grad (more content not included)... Normal [facility] Patient Educationon 03-26-20 Patient Education Urology Testicular [...] 10/26/2001 Document Revised: 11/10/2019 Document Reviewed: 06/15/2017 [employer] Patient Education ? 2019 [place] [employer] Epididymitis Epididymitis is swelling (inflammation) or infection [...] karen (more content not included)... Normal [facility] Urology Office/Clinic Noteon 03-26-2022 Urology Office/Clinic Note [...] Protein Urine Dipstick: Negative (03/26/22 10:53:00) Specific [place] Urine Dipstick: 1.020 (03/26/22 10:53:00) Urine Appearance Urine Dipstick: Clear (03/26/22 10:53:00) Urine Color Urine Dipstick: Yellow (03/26/22 10:53:00) Urobilinogen Urine D (more content not included)... Normal [facility] Comment on above: Result Comment: Elec tronically Signed By: Gemini Vasquez MD\.br\Date and Time Signed: 03/26/22 12:08 EDT\.br\Electronically Co-Signed By: Nicole Chaudhary\.br\Date and Time Co-Signed: 03/26/22 11:38 EDT SURGICAL PATH REPORTon 09-28 SURGICAL PATH REPORT Normal [facility] Comment on above: Result Comment: DIAG NOSIS A and B RIGHT AND LEFT VAS DEFERENS, PARTIAL RESECTIONS: BENIGN, COMPLETE TRANSECTIONS OF BILATERAL VAS DEFERENS CPT 83438 X2 parrish/09/28/2018 Electronically Signed Out by Bryan [...] cassette. ns B The container is labeled Ricic Rodriges, right vas segment . Received in formalin is a single glistening mariano-white cord-like segment measuring 1.2 cm in length. Submitted in its entirety. One cassette. ns mg parrish/09/28/2018 MICROSCOPIC DESCRIPTION A Microscopic examination was performed. B Microscopic examination was performed. Pathology [employer], [employer]. [address] [place] [address] CLIA No. [id number] CAP Accreditation No. [id number] Director Of [employer]: Edi Lynn M.D. [employer] Accession Number: [id number] Performed By: #### P L BIOPSY #### [address] [address] SURGICAL PATH REPORTon 09-24 Age at specimen collection = Normal [facility] Comment on above: Performed By: #### P L BIOPSY #### [address] [address] Vital Signs Date Time Vital Sign Value Performing Clinician Faci lity 09-16-2023 10:37-0500 Body height 193 cm Dylan Ontiveros MD Work Phone: [facility] 09-16-2023 10:37-0500 Body mass index (BMI) [Ratio] 32.62 kg/m2 Dylan Ontiveros MD Work Phone: [facility] 09-16-2023 10:37-0500 Body weight 121.56 kg Dylan Ontiveros MD Work Phone: [facility] 08-19-2023 15:12-0500 Body height 193 cm Haile Ravi MD Work Phone: [facility] 08-19-2023 15:12-0500 Body mass index (BMI) [Ratio] 32.62 kg/m2 Haile Ravi MD Work Phone: [facility] 08-19-2023 15:12-0500 Body weight 121.56 kg Haile Ravi MD Work Phone: [facility] 07-18-2022 10:30-0500 Body temperature 97.5 [degF] Mitul Jackson DPM Work Phone: [employer] 07-18-2022 10:30-0500 Diastolic blood pressure 83 mm[Hg] Mitul Jackson DPM Work Phone: [employer] 07-18-2022 10:30-0500 Heart rate 79 /min Mitul Nadiron DPM Work Phone: [employer] 07-18-2022 10:30-0500 Respiratory rate 13 /min Mitul Nadiron DPM Work Phone: [employer] 07-18-2022 10:30-0500 SaO2% (BldA) [Mass fraction] 94 % Mitul Nadiron DPM Work Phone: [employer] 07-18-2022 10:30-0500 Systolic blood pressure 136 mm[Hg] Mitul Lorene DPM Work Phone: [employer] 07-18-2022 06:31-0500 Body height 193 cm Mitul Nadiron DPM Work Phone: [employer] 07-18-2022 06:31-0500 Body mass index (BMI) [Ratio] 31.77 kg/m2 Mitul Jackson DPM Work Phone: [employer] 07-18-2022 06:31-0500 Body weight 118.39 kg Mitul Jackson DPM Work Phone: [employer] [facility] Encounters Encounter Date Encounter Type Care Provider Facility Start: 10-27-2023 End: 10-28-2023 ambulatory ESTEFANY IVERSON [facility] Start: 10-12-2023 End: 10-12-2023 ambulatory ESTEFANY LOPEZMAILEApril Not Available Start: 09-16-2023 End: 09-16-2023 ambulatory DYLAN ONTIVEROS [facility] Start: 09-16-2023 End: 09-16-2023 Office outpatient visit 15 minutes Dylan Ontiveros MD Work Phone: [facility] Comment on above: 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); Osteoarthritis of right ankle and foot; Acquired valgus deformity of right foot; Acquired valgus deformity of left foot; Bilateral foot pain Start: 08-19-2023 End: 08-19-2023 ambulatory HAILE RAVI [facility] Start: 08-19-2023 End: 08-19-2023 Office outpatient visit 15 minutes Haile Ravi MD Work Phone: [facility] Comment on above: Post-traumatic osteo arthritis of right knee (Primary Dx); Arthritis of left knee Start: 07-07-2023 End: 07-07-2023 ambulatory ESTEFANY ELADIOSukiCHELSEA Not Available Start: 07-18-2022 End: 07-21-2022 ambulatory ESTEFANY Mckenna ELADIOSukiCHELSEA [facility] Start: 07-18-2022 End: 07-20-2022 Subsequent hospital visit by physician Mitul Jackson DPM Work Phone: [facility] Comment on above: Post-operative state Start: 07-18-2022 End: 07-18-2022 ambulatory MITUL JACKSON [facility] Start: 07-18-2022 End: 07-18-2022 Subsequent hospital visit by physician Mitul Jackson DPM Work Phone: [facility] Comment on above: Post-operative state (Primary Dx); Post-op pain Start: 03-26-2022 End: 03-26-2022 Patient encounter procedure Gemini Vasquez [facility] Start: 09-24-2018 End: 09-24-2018 Patient encounter procedure DYLAN CRAWFORD Facility:[facility] Procedures Date Procedure Procedure Detail Performing [...] Td Vaccines (2 - Td or Tdap) [facility] Start: 12-27-2025 DTaP/Tdap/Td vaccine (2 - Td or Tdap) DTaP/Tdap/Td vaccine (2 - Td or Tdap) [facility] Start: 09-16-2024 Adult BMI Screening Adult BMI Screen ing [facility] Start: 09-16-2024 Tobacco Screening Tobacco Screening [facility] Start: 08-19-2024 Adult BMI Screening Adult BMI Screen ing [facility] Start: 08-19-2024 Tobacco Screening Tobacco Screening [facility] Start: 03-07-2024 End: 03-07-2024 Patient encounter procedure 03/07/2024 3:10 PM EDT Office Visit [facility] [address] [place] [id number] Haile Ravi MD [address] [place] [address] [facility] Start: 12-07-2023 End: 12-07-2023 Patient encounter procedure 12/07/2023 3:20 PM EDT Office Visit [facility] [address] [facility] [place] [address] Haile Ravi MD [address] [place] [address] [facility] Start: 04-03-2023 COVID-19 Vaccine () COVID-19 Vaccine () [facility] Start: 07-23-2022 End: 07-23-2022 Patient encounter procedure 07/23/2022 Office Visit Podiatry Mitul Jackson, DUNIA [address] [place], [place] [id number] [facility] Start: 07-18-2022 End: 07-18-2023 XR FOOT LEFT (MIN 3 VIEWS) [facility] Work Phone: Comment on above: Expected: 07/18/2022 , Expires: 07/18/2023 Start: 07-18-2022 End: 07-18-2023 XR FOOT RIGHT (MIN 3 VIEWS) [facility] Work Phone: Comment on above: Expected: 07/18/2022 , Expires: 07/18/2023 Start: 07-18-2022 End: 07-18-2022 Correction hammertoe FOOT ARTHRODESIS Hammer toes of both feet 07/18/2022 7:28 AM EST [facility] Start: 09-13-2021 COVID-19 Vaccine (4 - Booster for Pfizer series) COVID-19 Vaccine (4 - Booster for Pfizer series) [facility] Start: 11-06-2019 Screening for malign ant neoplasm of colon [facility] Start: 2014 Lipid panel Lipids [facility] [employer] Start: 2009 Diabetes screen [facility] Start: 1992 Adult BMI Follow Up Plan Adult BMI Follow Up Plan [facility] Start: 1992 Hepatitis C screening Hepatitis C sc reen [facility] [employer] Start: 1989 HIV screening HIV screen [facility] [employer] Start: 1986 Depression Screen Depression Screen [facility] [employer] Start: 1986 Depression Screening [facility] End: 07-18-2022 INITIATE PACU OXYGEN THERAPY PROTOCOL Initiate PACU Oxygen Therapy Protocol Respiratory Care Routine Continuous until discontinued starting 07/18/2022 [facility] Phone: Comment on above: Continuous until dis continued starting 07/18/2022 Immunizations Immunization Date Immunization Notes Care Provider Jordan solitario 12-28-2015 tetanus toxoid, reduced diphtheria toxoid, and acellular pertussis vaccine, adsorbed Mitul Jackson DPM Work Phone: [facility] [employer] NEGATED: Highlighted row has not occurred!03-26-2022 SARS-CoV-2 mRNA (tozinameran 5y-11y) vaccine Gemini Vasquez [facility] Payers Date Payer Category Payer Unknown [employer] [id number] 2018-Present [phone] [address] [place] [address] [id number] 2014 Unknown [id number] 1974 Unknown [id number] 1974 Unknown [id number] 1974 Unknown [id number] [id number] 1974 Unknown [id number] [id number] 1974 Unknown [id number] [id number] 1974 Unknown [id number] [id number] 1974 Unknown [id number] [id number] 1974 Unknown [id number] [id number] 1974 Unknown [id number] [id number] 1974 Unknown [id number] [id number] 1974 Unknown [id number] Social History Date Type Detail Facility Start: 03-26-2022 Tobacco smoking status Light t obacco smoker (finding) [facility] Tobacco smoking status Never [facility] Start: 09-12-2020 End: 08-19-2023 Sex Assigned At Male [facility] Start: 07-18-2022 End: 05-13-2023 Tobacco smoking status NHIS Ex-smoker [employer] End: 06-03-2022 History of tobacco use Current smoker [employer] Phone: End: 06-03-2022 History of tobacco use Cigarette Smoker [employer] Phone: Start: 09-12-2020 End: 07-18-2022 Cigarettes smoked current (pack per day) - Reported 1 [employer] Phone: Start: 07-18-2022 End: 05-13-2023 Tobacco use and exposure Smokeless tobacco non-user [employer] Phone: Start: 07-18-2022 End: 09-16-2023 Alcohol intake Current drinker of alcohol (finding) [employer] Phone: Start: 1975 Sex Assigned At Not on file [employer] Phone: Start: 07-08-2022 End: 07-18-2022 Exposure to SARS-CoV-2 (event) Not sure [employer] Phone: Start: 07-05-2019 Alcohol Comment daily [employer] Medical Equipment Procedure Code Equipment Code Equipment Origin al Text Equipment Identifier Dates Screw Bne L30mm Dia2.5mm Stan Ft Ank Ti Self Drl St Alexx - [id number] Start: 07-18-2022 Functional Status Date Assessment Result Facility 03-26-2022 Functional Status N/A [facility] Clinical Notes 03-26-2022 to 09-16-2023 Dylan Ontiveros MD - 09/16/2023 10:10 AM NATALIEDaayden Ravi MD - 08/19/2023 3:15 PM ESTDischarge Instructions Note Date & Type Note Facility 09-16-2023 History of Presen t illness [facility]ative [facility] Dylan Ontiveros MD Orthopaedic [...] previously had surgery with with podiatry in [place] for hammertoes bilaterally for which he had [...] of treatment with the patient and Physician Metal Machinist. The critical element of all procedures were [...] the current time. documented in this encounter [email or web address] 08-19-2023 History of Presen t illness Narrative [...] of the aforementioned history prepared by the granger practice provider, and I personally performed the [...] in the future. documented in this encounter [facility] 07-18-2022 [facility] Discharg e instructions Malachi Kindra Morales, [...] schedule or confirm your appointment. Call your Tie Up Worker office if you have any questions or concerns. documented in this encounter [employer] Phone: 03-26-2022 [facility] Patient Education 03/26/2022 11:37:18 Testicular [...] 10/26/2001 Document Revised: 11/10/2019 Document Reviewed: 06/15/2017 [email or web address] Patient Education 2020 [place] [employer]. 03/26/2022 11:30:12 Epididymitis Epididymitis Epididymitis is swelling [...] Follow these instructions at home: Medicines Take cosy-iiy-jjrztcj and prescription medicines only as told by [...] 07/17/2001 Document Revised: 05/23/2019 Document Reviewed: 05/24/2019 [email or web address] Patient Education 2020 [place] [employer]. Follow Up Care 02/28/2022 10:12:45 With:Pedro RDZ, Gemini Gregorio, URAriadna, URO Address: When: only if needed Comments:PRN [facility] Evaluation + Plan note No data available for this section [facility] Evaluation note Diagnosis Post-operative state- Primary Other postprocedural status Post-operative state Other postprocedural status Post-op pain Other acute postoperative pain Hammertoe of second toe of right foot Hammertoe of second toe of left foot Pain in left foot Pain in limb Pain in right foot Pain in limb Contracture, foot, right Contracture, foot, left documented in this encounter [employer] Phone: evalnpdraa note* Diagnosis Post-operative state Other postprocedural status documented in this encounter [employer] Phone: evalzqfvnl note* Diagnosis Post-traumatic osteoarthritis of right knee- Primary Arthritis of left knee documented in this encounter [facility] SystemEvaluation note* Diagnosis Osteoarthritis of left ankle and foot- Primary Osteoarthritis of right ankle and foot Acquired valgus deformity of right foot Acquired valgus deformity of left foot Bilateral foot pain Bilateral foot pain Bilateral foot pain documented in this encounter [employer] SystemInstructionsNot on filedocumented in this encounter [employer] SystemInstructionsNot on filedocumented in this encounter [employer]Progress note No data available for this section [facility] [employer] Summary Purpose Family History No Family History [...] section and content) DATE CREATED AUTHOR 10/08/2018 [facility] DATE CREATED AUTHOR AUTHOR'S ORGANIZ ATION 03/27/2022 [facility] Y[facility] DATE CREATED AUTHOR AUTHOR'S ORGANIZ ATION 07/24/2022 [facility] DATE CREATED AUTHOR AUTHOR'S ORGANIZ ATION 12/15/2022 [facility] dical Specialist DATE CREATED AUTHOR AUTHOR'S ORGANIZ ATION 09/18/2023 [facility] DATE CREATED AUTHOR AUTHOR'S ORGANIZ ATION 10/13/2023 [facility] dical Specialists EPIC DATE CREATED AUTHOR AUTHOR'S ORGANIZ ATION 10/28/2023 [facility] Care Team (unrecognized sect ion and content) Bucket Turner Relationship Specialty Start Date End Date Estefany Iverson [address] [place] [address] PCP - General Nurse Practitioner 07/14/22 Bucket Turner Relationship Specialty Start Date End Date Estefany Iverson [address] [place] [address] PCP - General Nurse Practitioner 07/14/22 Bucket Turner Relationship Specialty Start Date End Date Estefany Iverson APRN-PRACTICE ASSISTANT [address] [place] [phone] PCP - General Nurse Practitioner 02/27/22 Bucket Turner Relationship Specialty Start Date End Date Estefany Iverson, ANTHONY-PRACTICE ASSISTANT [address] [place] [phone] PCP - General Nurse Practitioner 02/27/22 Reason for Visit (unrecogniz ed section and content) Specialty Diagnoses / Procedures Referred By Anuradha kang Referred To Contact Diagnoses Hammer toes of both feet Hammer toes of both feet [M20.41, M20.42] Procedures NM REPAIR OF HAMMERTOE,ONE RIGHT 2ND HAMMERTOE ARTHRODESIS RIGHT 2,3 AND 4 FLEXOR TENDONOTOMY LEFT 2-4 FLEXOR TENDONOTOMY - TRIMMET PIN ARTHREX VS SCREWS Mitul Jackson DPM [address] [place] [address] [facility] [address] [place] [address] Referral ID Status Reason Start Date Expiration Date Visits Re quested Visits Authorized [id number] 1 1 Reason Comments Pain Right knee [...] 0745 (Given - Provid er: Estefany French, QA REVIEWER - LEAD PRESSMAN [employer]) sodium chloride flush 0.9 % injection 5-40 [...] BE BASED ON THE PRIMARY CLINICAL RECORDS. [facility] [employer] [facility]. provides no warranty or guarantee of the accuracy or completeness of information in this document.
== END 2023-11-03 19:50 | disposition home or self-care (01) ==
LOC: SLEEP 19:49
PROVIDERS: PCP Nurse Practitioner; Visit Provider Nurse Practitioner
DX: G47.33 Obstructive sleep apnea (adult) (pediatric) (principal)
CPT/HCPCS: 95811

== ENCOUNTER 2025-07-20 14:43 | Outpatient (OUT) | payer OTHER, SELFPAY ==
--- OUTSIDE RECORDS SUMMARY | 2025-07-11 14:40 | XMS_ITS | Encounter Summary ---
Author Organization [facility] Address [address] [place] [address] Care Team Providers Care Coat Padder Name Role Phone Estefany Iverson NP Unavailable [phone] Rehan Olivier MD Primary Care Provider Estefany Iverosn NP Unavailable [phone] Jenn Stevens MD Unavailable Reason for Visit * ReasonCommentsFollow-upThyroid ProblemLAB Encounter Details DateTypeDepartmentCare Team (Latest Contact Info)Wezfysbouut73/09/2025 2:40 PM ESTOffice Visit [facility] [address] [place] [address] Jenn Stevens MD [address] [place] [address] Secondary male hypogonadism (Primary Dx); Low libido Social History Tobacco UseTypesPacks/DayYears UsedDateSmoking Tobacco: FormerCigarettesPassive Smoke Exposure: PastSmokeless Tobacco: NeverAlcohol UseStandard Drinks/Week CommentsYes0 (1 standard drink = 0.6 oz pure alcohol)3-4 drinks 4 or more times a week, coffee 1 cup, couple cans of caffeine free pop (sprite)Humiliation, Afraid, Rape, and Kick questionnaireAnswerDate RecordedWithin the last year, have you been afraid of your partner or ex-partner?No07/07/2023Within the last year, have you been humiliated or emotionally abused in other ways by your partner or ex-partner?No07/07/2023Within the last year, have you been kicked, hit, slapped, or otherwise physically hurt by your partner or ex-partner?No 07/07/2023Within the last year, have you been raped or forced to have any kind of sexual activity by your partner or ex-partner?No07/07/2023Social Connection and Isolation PanelAnswerDate RecordedIn a typical week, how many times do you talk on the phone with family, friends, or neighbors?More than three times a week07/07/2023How often do you get together with friends or relatives?More than three times a week07/07/2023How often do you attend lutheran or church services?Never07/07/2023o you belong to any clubs or organizations such as lutheran groups, unions, fraternal or athletic groups, or school groups?No 07/07/2023How often do you attend meetings of the clubs or organizations you belong to?Never07/07/2023re you , , , , never , or living with a partner?Dvoaoiqm25/05/2023UDIT-CAnswerDate Recorded Q1: How often do you have a drink containing alcohol?2-3 times a week07/07/2023 Q2: How many drinks containing alcohol do you have on a typical day when you are drinking?1 or Q3: How often do you have six or more drinks on one occasion?Lkmbcty4907/07/2023Overall Financial Resource Strain (CARDIA)AnswerDate RecordedHow hard is it for you to pay for the very basics like food, housing, medical care, and heating?Not hard at all07/07/2023HQ-2AnswerDate Recorded Patient Health Questionnaire-2 Dfuvg792Fin[facility] [place] of Occupational Health - Occupational Stress QuestionnaireAnswerDate RecordedDo you feel stress - tense, restless, nervous, or anxious, or unable to sleep at night because your mind is troubled all the time - these days?Only a rzzyzj63/05/2023Exercise Vital SignAnswerDate RecordedOn average, how many days per week do you engage in moderate to strenuous exercise (like a brisk walk)?7 days07/07/2023On average, how many minutes do you engage in exercise at this level?30 min07/07/2023Hunger Vital SignAnswerDate RecordedWithin the past 12 months, you worried that your food would run out before you got the money to buymore.Never true07/07/2023 Within the past 12 months, the food you bought just didn't last and you didn't have money to get more.Never true07/07/2023RAPARE - TransportationAnswerDate RecordedIn the past 12 months, has lack of transportation kept you from medical appointments or from getting medications?No07/07/2023In the past 12 months, has lack of transportation kept you from meetings, work, or from getting things needed for daily living?No07/07/2023Housing Stability Vital SignAnswerDate RecordedIn the last 12 months, was there a time when you were not able to pay the mortgage or rent on time?No07/07/2023Number of Places Lived in the Last Year Not on file07/07/2023In the last 12 months, was there a time when you did not have a steady place to sleep or slept in [facility] (including now)?No07/07/2023 Sex and Gender InformationValueDate RecordedSex Assigned at XvloiOtfg83/05/2023 3:25 PM ESTLegal OsmXeig6710/15/2022 7:26 PM EDTGender WdapunamFqow24/15/2023 7:26 PM EDTSexual UwhdixfjqeqYxwwwxtd78/05/2023 3:25 PM ESTdocumented as of this encounter Last Filed Vital Signs Vital SignReadingTime TakenCommentsBlood Pressure--Lrwao059107/11/2025 2:31 PM EST Temperature--Respiratory Dmzq710409/11/2024 2:31 PM ESTOxygen Xgdlnopenc21% 07/11/2025 2:31 PM ESTInhaled Oxygen Concentration--Hpjxgv999 kg (245 lb) 07/11/2025 2:31 PM OFPXcyzur907 cm (6' 4 )07/11/2025 2:31 PM ESTBody Mass Index 29.8212 2:31 PM ESTdocumented in this encounter Progress Notes * Jenn Stevens MD - 07/11/2025 2:40 PM EST Images from the original note were not included. Dennis Rodriges is a 49 y.o. male No ref. provider found presents with chief complaint of Follow-up and Thyroid Problem (LAB) HPI: Interim history: 07/2025 Followup visit 07/11/2025 for hypogonadism. lab on 07/2025 testosterone 0.32 ( 1.6-7.6), he injectshis testosterone in his bilateral thigh Interim history: 07/2024 Followup visit 07/12/2023 for hypogonadism. he is on xyosted 100 mg weekly. feel better. testosterone 5.4 ( 1.6-7.6), PSA 0.1, hemoglobin 14.8, insurance will not cover xyosted anymore. Interim history: 01/2024 Followup visit 01/04/2023 for hypogonadism. he is on xyosted 100 mg weekly. feel better. Interim history: 05/2023. Followup visit 05/26/2023 for hypogonadism. Total testosterone 542 (300-824), FT 121 (47-244). he is on xyosted 100 mg weekly. Interim history: 01/2023. Followup visit 01/27/2023 for hypogonadism. MRI within normal limits. No pituitary nodules. Labs done. Ferritin 9, FSH 1.6, LH 1.2, PSA less than 0.1, sex-hormone binding globulin 23 (13-89). Total testosterone 0.31 (1.68-7.8). HPI: 01/2023 New patient sent from Estefany Iverson for hypogonadism. Testosterone ___ (300- 890), free qtqjoqnudvlb50 (47-244). Prolactin in November 2022 normal. Hemoglobin 14, hematocrit 43. He used to be on pain medication over the last 20 years and Suboxone for neuropathy and he is on Lyrica 100 three times a day. Low energy. Has one kid, 21 years old. No fertility issues before. SUBJECTIVE: MEDICATIONS: Current Outpatient Medications Medication Instructions BD Plastipak Syringe 21G X 1 3 ML misc Buprenorphine HCl-Naloxone HCl (Suboxone) 8-[address] under the tongue busPIRone (BUSPAR) 5 mg, Oral, Every 8 hours PRN escitalopram (LEXAPRO) 20 mg, Oral, Daily omeprazole (PRILOSEC) 40 mg, Oral, Daily before breakfast, Do not crush or chew. pregabalin (LYRICA) 150 mg, Oral, 2 times daily sildenafil (VIAGRA) 50 mg, Oral, Daily PRN, Take 1 hour prior to anticipated sexual activity tamsulosin (FLOMAX) 0.4 mg, Nightly testosterone cypionate (DEPO-TESTOSTERONE) 300 mg, Intramuscular, Every 14 days traZODone (DESYREL) 100 mg, Oral, Nightly, May take either 1 or 2 pills at bedtime Xyosted 100 MG/0.5ML solution auto-injector INJECT 100 MG UNDER THE SKIN EVERY WEEK ALLERGIES: No Known Allergies Past Medical History: Diagnosis Date Decreased libido Elevated glucose Epididymitis Fatigue 10/12/2023 Gastroesophageal reflux disease, unspecified whether esophagitis present Hammer toe Hammer toes of both feet Hemorrhoid Hypogonadism in male 10/12/2023 Hypopituitarism (HCC) Obesity (BMI 30-39.9) Opioid abuse ([facility]) Bup only 09/16 09/24 09/30 10/08 10/21 11/04 11/25 12/23 01/20 Peripheral neuropathy Plantar fasciitis Plantar fasciitis Polyneuropathy Scrotal pain 46 y o presents with right scrotal swelling /pain - started 2 days then went away. Came back last night. Reports dull aching pain, feels like scrotum is heavy. no injury, no discharge, no urinary symptoms no STD exposure Exam c/w varicocele Testicular hypofunction Tobacco user Past Surgical History: Procedure Laterality Date ANKLE SURGERY Right CAPSULOTOMY FOOT SURGERY Bilateral hammer toe correction FOOT SURGERY Right 2016 Heel FOOT SURGERY Bilateral 07/2022 KNEE SURGERY Bilateral Arthroscopy KNEE SURGERY Right 1999, 2010 KNEE SURGERY Bilateral 1990 KNEE SURGERY Left 2000 TENOTOMY flexor REVIEW OF SYMPTOMS: 14 POINT OF SYSTEM REVIEWED AND NEGATIVE OBJECTIVE: 07/20/2024 3:32 PM 09/08/2024 3:20 PM 10/20/2024 3:30 PM 12/15/2024 4:10 PM 01/10/2025 2:55 PM 03/21/2025 4:24 PM 07/11/2025 2:31 PM Vitals BMI 30.65 kg/m2 31.19 kg/m2 30.37 kg/m2 29.55 kg/m2 30.31 kg/m2 29.72 kg/m2 29.82 kg/m2 BSA (m2) 2.47 m2 2.49 m2 2.46 m2 2.43 m2 2.46 m2 2.44 m2 2.44 m2 Systolic 122 140 120 128 120 124 Diastolic 98 90 84 88 86 82 Heart Rate 75 71 93 83 84 75 78 SpO2 97 % 96 % 96 % 93 % 96 % 97 % 98 % Temp 98 ??F 98.7 ??F 98.2 ??F 98.5 ??F 97.8 ??F Resp 20 18 18 18 20 18 Height (in) 6' 4 6' 4 6' 4 6' 4 Weight (lb) 251.8 256.2 249.5 242.8 249 244.2 245 Visit Report Report Report Report Report Report Report Report Physical Exam Constitutional: Appearance: Normal appearance. He is normal weight. HENT: Head: Normocephalic and atraumatic. Right Ear: External ear normal. Nose: Nose normal. Mouth/Throat: Pharynx: Oropharynx is clear. Eyes: Extraocular Movements: Extraocular movements intact. Pupils: Pupils are equal, round, and reactive to light. Cardiovascular: Rate and Rhythm: Normal rate and regular rhythm. Pulmonary: Effort: Pulmonary effort is normal. Abdominal: General: Abdomen is flat. Palpations: Abdomen is soft. Musculoskeletal: General: Normal range of motion. Skin: General: Skin is warm. Neurological: General: No focal deficit present. Mental Status: He is alert. Psychiatric: Mood and Affect: Mood normal. Behavior: Behavior normal. ASSESSMENT AND PLAN: Assessment/Plan Diagnoses and all orders for this visit: Secondary male hypogonadism - testosterone cypionate (Depo-Testosterone) 200 MG/ML injection; Inject 1.5 mL (300 mg) into the shoulder, thigh, or buttocks every 14 (fourteen) days - PSA; Future - Hemoglobin; Future - Testosterone; Future We will continue the same dose 300 mg 1-1/2 mL q.2 weeks but I told him to injected in his buttock instead of his thigh Low libido Follow up in about 6 months (around 01/09/2026). documented in this encounter Plan of Treatment DateTypeDepartmentCare Team (Latest Contact Info)Azgscwfjsbp45/09/2026 2:50 PM EDTOffice Visit [facility] [place] [facility] [address] [place] [address] Jenn Stevens MD [address] [place] [address] NameTypePriorityAssociated DiagnosesOrder SchedulePSALabRoutine Secondary male hypogonadism Expected: 07/11/2025 (Approximate), Expires: 07/11/2026HemoglobinLabRoutine Secondary male hypogonadism Expected: 07/11/2025 (Approximate), Expires: 07/11/2026TestosteroneLabRoutine Secondary male hypogonadism Expected: 07/11/2025 (Approximate), Expires: 07/11/2026documented as of this encounter Goals GoalPatient Goal TypeAssociated ProblemsRecent ProgressPatient-Stated?Author Help patient manage antidepressant medication Care PlanPatient on antidepressant monitoring planNoNDanielle wall Baseline PHQ-9 Care PlanBaseline PHQ-9NoNearhood, Tiffanyniferdocumented as of this encounter Visit Diagnoses Diagnosis Secondary male hypogonadism- Primary Other testicular hypofunction Low libido documented in this encounter Additional Health Concerns Active ProblemsNoted DateDiagnosed DatePatient on antidepressant monitoring plan 08/25/2024aseline PHQ-9008/25/2024documented as of this encounter Care Teams Team MemberRelationshipSpecialtyStart DateEnd Date Rehan Olivier MD [address] [place] [address] PCP - GeneralFamily Medicine10/12/23 Jenn Stevens MD [address] [place] [address] PCP - Medical [employer]08/03/1511 Estefany Iverson NP [address] [place] [address] Referring PhysicianFamily Medicine03/09/23 Estefany Iverson NP [address] [place] [address] Nurse PractitionerFamily Medicine10/12/23documented as of this encounter
--- OUTSIDE RECORDS SUMMARY | 2025-07-20 14:46 | XMS_ITS | Clinical Summary ---
Author Organization [facility] Healthcare Address [address] [place] [address] Care Team Providers Care Crisis Intervention Counselor Name Role Phone Estefany Iverson NP Unavailable [phone] Rehan Olivier MD Primary Care Provider [phone] Estefany Iverson NP Unavailable [phone] Jenn Stevens MD Unavailable [phone] Allergies No known active allergies Medications MedicationSigDispense QuantityRefillsLast FilledStart DateEnd DateStatus Buprenorphine HCl-Naloxone HCl (Suboxone) 8-[address] under the tongueActive tamsulosin (Flomax) 0.4 MG 24 hr capsule Take 0.4 mg by mouth at qnqqlwh7806/19/2024ctive Xyosted 100 MG/0.5ML solution auto-injector Indications:Hypogonadism in maleINJECT 100 MG UNDER THE SKIN EVERY WEEK 6 mL ctive BD Plastipak Syringe 21G X 1 3 ML misc 07/12/2024ctive busPIRone (Buspar) 5 MG tablet Indications:Generalized anxiety disorder with panic attacksTake 1 tablet (5 mg) by mouth every 8 (eight) hours if needed (anxiety) 270 tablet 5Active sildenafil (Viagra) 50 MG tablet Indications:Drug-induced erectile dysfunctionTake 1 tablet (50 mg) by mouth Daily as needed for erectile dysfunction for up to 10 days Take 1 hour prior to anticipated sexual activity 10 tablet 5Active omeprazole (PriLOSEC) [address] capsule Indications:Gastroesophageal reflux disease without esophagitisTake 1 capsule (40 mg) by mouth in the morning. Take before meals. Do not crush or chew. 90 capsule 5Active escitalopram (Lexapro) 20 MG tablet Indications:Generalized anxiety disorder with panic attacksTake 1 tablet (20 mg) by mouth Daily 90 tablet 5Active traZODone (Desyrel) 50 MG tablet Indications:Insomnia, unspecified typeTake 2 tablets (100 mg) by mouth at bedtime May take either 1 or 2 pills at bedtime 180 tablet 5Active pregabalin (Lyrica) 150 MG capsule Indications:Peripheral polyneuropathyTake 1 capsule (150 mg) by mouth in the morning and 1 capsule (150 mg) before bedtime. 60 capsule 5Active testosterone cypionate (Depo-Testosterone) 200 MG/ML injection Indications:Secondary male hypogonadismInject 1.5 mL (300 mg) into the shoulder, thigh, or buttocks every 14 (fourteen) days 9 mL /6Active testosterone cypionate (Depo-Testosterone) 200 MG/ML injection Indications:Secondary male hypogonadismInject 1.5 mL (300 mg) into the shoulder, thigh, or buttocks every 14 (fourteen) days 9 mL Discontinued(Reorder) Active Problems ProblemNoted DateDiagnosed DateEdema of both lower nxzkzkkhhah96/19/2025Post- traumatic stress mnjukhyq05/24/2025 Assessment & Plan (10/24/2024 9:34 AM EDT): Many life events as well as his job contribute to his stressors and anxiety He is willing to see a counselor, I did contact [facility] regarding Primo Saha,he is booking into early January 2025 Drug-induced erectile bgznuafsbmd40/20/2025 Assessment & Plan (10/20/2024 5:05 PM EDT): Thinks that duloxetine caused ED to occur Wants to go back to escitalopram, also is asking about possible ED med until sxs improve Will order sildenafil prn , #10, advised of side effects of vision change, chest pain if occur stopmedication and notify office, also if erection lasting longer than 4 hours go to ER Generalized anxiety disorder with panic vqqcdmn3406/22/2024 Overview (09/08/2024): 09/08/24: ADELAIDA 7 score=6, PHQ 9 score=4 Assessment & Plan (03/21/2025 5:59 PM EDT): Current med: lexapro, Does not want to change meds or doses Is going to call [facility] Assessment & Plan (12/15/2024 7:11 AM EDT): Current med: lexapro, trazodone Assessment & Plan (10/20/2024 5:07 PM EDT): Back to lexapro will prescribe at 20mg daily see discharge instructions for how to start and wean duloxetine Many stressors depression, PTSD, and anxiety Is willing to go to counseling Will see if Primo Poole is available at [facility] in 4-6 weeks Assessment & Plan (09/08/2024 4:45 PM EST): At last visit it was discussed about may be better or not, really pre occupied with severe increasein neuropathy pain and we increased his pre gabalin Overwhelmed with mothers health as she has terminal cancer, job stressors , trying to wean off suboxone Current med: buspar, lexapro ADELAIDA 7 score=6, PHQ score=4 Stop lexapro , trial duloxetine 30mg, and buspar can go to prn Take medication only as directed. This medication will take approximately 4-6 weeks to become effective. If any suicidal thoughts, thoughts of hurting others, or hallucinations contact the office or proceed to the Emergency Room for mental health evaluation. Medication may cause dry mouth, dizziness, and in some cases worsening in depression symptoms. Please contact the office if these occur. Assessment & Plan (07/20/2024 4:23 PM EST): (Brother with similar sxs: uses buspar and lexapro and has done well)At last appt we started with lexapro and buspar: ?? May be better or not, really pre occupied with severe increase in neuropathy pain Overwhelmed with mothers health as she has terminal cancer, job stressors , trying to wean off suboxone Assessment & Plan (06/22/2024 12:10 PM EST): Start with lexapro and buspar Take medication only as directed. This medication will take approximately 4-6 weeks to become effective. If any suicidal thoughts, thoughts of hurting others, or hallucinations contact the office or proceed to the Emergency Room for mental health evaluation. Medication may cause dry mouth, dizziness, and in some cases worsening in depression symptoms. Please contact the office if these occur. Brother with similar sxs: uses buspar and lexapro and has done well Overwhelmed with mothers health as she has terminal cancer, job stressors , trying to wean off suboxone Fu in 4 weeks Irritation of left eye03/03/2024 Assessment & Plan (03/03/2024 4:32 PM EDT): Atb ointment to irritated area of skin, fu if not better Family history of premature CAD03/03/2024 Assessment & Plan (03/03/2024 4:31 PM EDT): Check stress test Consider calcium scoring test at facility DEBORAH (obstructive sleep apnea)10/29/2023 Overview (11/12/2023): Sleep study 10/28/23: AHI 43.7 low SpO2 76% Titration study on 11/03/2023: BIPAP at 20/10 w pressure support of 5cm H2) Assessment & Plan (03/21/2025 5:58 PM EDT): You have a diagnosis of obstructive sleep apnea. It is recommended that you wear your PAP device any time while in bed sleeping. Not using the PAP device can increase your risk of elevated/uncontrolled high blood pressure, atrial fibrillation, heart attack, stroke, or sudden . Compliance with PAP: yes How many hours of use per night: 7 Do you feel more refreshed in the morning: no Company that supplies your machine and tubing/filters etc: Brett Doctor that manages your DEBORAH: no one Assessment & Plan (10/20/2024 7:15 AM EDT): You have a diagnosis of obstructive sleep apnea. It is recommended that you wear your PAP device any time while in bed sleeping. Not using the PAP device can increase your risk of elevated/uncontrolled high blood pressure, atrial fibrillation, heart attack, stroke, or sudden . Compliance with PAP: How many hours of use per night: Do you feel more refreshed in the morning: Company that supplies your machine and tubing/filters etc: Doctor that manages your DEBORAH: Assessment & Plan (06/22/2024 12:08 PM EST): Continue PAP, doing well with this Assessment & Plan (03/03/2024 4:31 PM EDT): Cont w PAP doing well Weight loss is happening Other hammer toe(s) (acquired), left foot10/12/2023Mixed hyperlipidemia 10/12/2023lantar wspnodwex84/11/2024Other ypjfcit6610/12/2023 Assessment & Plan (03/21/2025 6:00 PM EDT): Check EKG and ECHO Dd; cardiac, mental health, possible low T Will get updated sleep compliance Assessment & Plan (10/12/2023 5:10 PM EDT): Falling asleep at desk at work, fatigued all the time Strong suspicion for DEBORAH Will order sleep study, pt would like an at home study Screening for prostate cgtczg2010/12/20234216Qnonofbf06/11/2024 Assessment & Plan (10/12/2023 5:06 PM EDT): Check PSA, and urinalysis Yhunwns8810/12/2023 Assessment & Plan (10/12/2023 5:07 PM EDT): Check urine Hypogonadism in male10/12/2023 Assessment & Plan (03/21/2025 7:13 AM EDT): Gets testosterone Managed per Endo Assessment & Plan (10/20/2024 7:17 AM EDT): Gets testosterone Managed per Endo Colon cancer mbafmywxj85/11/2024Internal derangement of right knee07/07/2023 Primary sujjkjmlxigmah20/05/2023Other chronic pain07/07/2023 Assessment & Plan (07/20/2024 4:19 PM EST): Increase pregabalin to 150mg BID Ifuorjcz86/05/2023 Assessment & Plan (06/22/2024 12:09 PM EST): Will continue trazdone, does well with this and PAP Assessment & Plan (03/03/2024 4:30 PM EDT): Continue trazodone at 100mg nightly Assessment & Plan (07/07/2023 3:48 PM EST): Will hold on try TCA Trazadone is going to trial 2 pills at bedtime Peripheral wgseisljepkrxj75/05/2023 Assessment & Plan (03/21/2025 7:13 AM EDT): Current med Lyrica OARRS reviewed Assessment & Plan (12/15/2024 7:10 AM EDT): Current med Lyrica OARRS reviewed Assessment & Plan (10/20/2024 5:04 PM EDT): Current med Lyrica, duloxetine did not do a lot to help this, he stopped duloxetine 3 days ago OARRS review Assessment & Plan (09/08/2024 4:42 PM EST): Last appt increased his lyrica to 150mg BID Feels this is helping, however still is present We are going to try again with duloxetine Assessment & Plan (07/20/2024 4:21 PM EST): Increase dose on pre gabalin OARRS reviewed Discussed possible change from escitalopram to duloxetine, he would like to wait Will call him in 3 weeks Assessment & Plan (06/22/2024 7:16 AM EST): Continue Kartik MILLS reviewed Assessment & Plan (03/03/2024 4:31 PM EDT): Cont kartik GENE reviewed Assessment & Plan (10/12/2023 5:13 PM EDT): Cont kartik, pt will go home and count how many lyrica he has left At this point he has not ever done this prior, I believe this was inadvertant, however this will beat Pharmacist disgression Assessment & Plan (07/07/2023 3:49 PM EST): GENE foster Verdugo continues Fu in 3 months GERD (gastroesophageal reflux disease)07/07/2023 Assessment & Plan (10/20/2024 7:16 AM EDT): Recommendations: freq small meals, nothing to eat or drink at least 2 hours prior to bed, limit caffeine, alcohol, as well as spicy foods Meds to limit or avoid if possible: NSAIDS Elevate HOB if possible Current med: omeprazole Assessment & Plan (06/22/2024 12:09 PM EST): Recommendations: freq small meals, nothing to eat or drink at least 2 hours prior to bed, limit caffeine, alcohol, as well as spicy foods Meds to limit or avoid if possible: NSAIDS Elevate HOB if possible Continue PPI History of drug arhtvdosek95/05/2023 Assessment & Plan (10/12/2023 5:06 PM EDT): Continue with Suboxone Obesity (BMI 30-39.9)07/07/2023 Assessment & Plan (03/21/2025 7:13 AM EDT): Discussed with patient their BMI (actual, verses recommended). We have also discussed lifestyle modifications: attempts to perform physical activity as chronic conditions allow, also to monitor dietary intake: increasing protein/fruits/veggies and lowering carb intake (unless contraindicated). Limit sodas, juices, and sugary drinks. BMI chart does not take into account muscle mass Assessment & Plan (12/15/2024 7:10 AM EDT): Discussed with patient their BMI (actual, verses recommended). We have also discussed lifestyle modifications: attempts to perform physical activity as chronic conditions allow, also to monitor dietary intake: increasing protein/fruits/veggies and lowering carb intake (unless contraindicated). Limit sodas, juices, and sugary drinks. BMI chart does not take into account muscle mass Assessment & Plan (10/20/2024 7:17 AM EDT): Discussed with patient their BMI (actual, verses recommended). We have also discussed lifestyle modifications: attempts to perform physical activity as chronic conditions allow, also to monitor dietary intake: increasing protein/fruits/veggies and lowering carb intake (unless contraindicated). Limit sodas, juices, and sugary drinks. BMI chart does not take into account muscle mass Assessment & Plan (09/08/2024 7:45 AM EST): Discussed with patient their BMI (actual, verses recommended). We have also discussed lifestyle modifications: attempts to perform physical activity as chronic conditions allow, also to monitor dietary intake: increasing protein/fruits/veggies and lowering carb intake (unless contraindicated). Limit sodas, juices, and sugary drinks. BMI chart does not take into account muscle mass Assessment & Plan (07/20/2024 7:49 AM EST): Discussed with patient their BMI (actual, verses recommended). We have also discussed lifestyle modifications: attempts to perform physical activity as chronic conditions allow, also to monitor dietary intake: increasing protein/fruits/veggies and lowering carb intake (unless contraindicated). Limit sodas, juices, and sugary drinks. BMI chart does not take into account muscle mass Assessment & Plan (06/22/2024 12:09 PM EST): Discussed with patient their BMI (actual, verses recommended). We have also discussed lifestyle modifications: attempts to perform physical activity as chronic conditions allow, also to monitor dietary intake: increasing protein/fruits/veggies and lowering carb intake (unless contraindicated). Limit sodas, juices, and sugary drinks. Also discussed oral medications that can be utilized for weight loss, as well as surgical options for weight loss. Assessment & Plan (07/07/2023 3:57 PM EST): Discussed weight loss, cutting back carbs, ETOH use as well Contracture, foot, left07/18/2022ontracture, foot, right07/18/2022 Resolved Problems ProblemNoted DateDiagnosed DateResolved DateChronic Encounters DateTypeDepartmentCare RgamNjdlmfnwuwl19/09/2025 2:40 PM ESTOffice Visit [facility] [address] [place] [address] Jenn Stevens MD Secondary male hypogonadism (Primary Dx); Low zwyjsz7607/11/2025amboo flowsheet [facility] [address] [place] [address] Jenn Stevens MD 07/05/2025Orders Only [facility] [address] [place] [address] Jenn Stevens MD 06/15/2025Refill [facility] [address] [place] [address] Chloe Donovan LPN Secondary male hypogonadismfrom Last 3 Months Immunizations ImmunizationAdministration DatesNext DueInfluenza, injectable, MDCK, preservative free, cofpnqtiasds09/13/2023Influenza, injectable, quadrivalent, preservative free06/09/2022,07/19/2021,05/03/2020,05/25/2019,07/03/2016 Influenza, seasonal, injectable, preservative free05/18/2024,05/15/2018, 05/08/2017Tdap12/28/2015 Family History Medical HistoryRelationNameCommentsDiabetesFatherDiabetesMaternal Grandfather RelationNameStatusCommentsBrotherAliveDaughterAliveFatherAliveMaternal GrandfatherMotherAlive Social History Tobacco UseTypesPacks/DayYears UsedDateSmoking Tobacco: FormerCigarettesPassive Smoke Exposure: PastSmokeless Tobacco: Never Tobacco Cessation:Counseling Given: Not Answered Alcohol UseStandard Drinks/WeekCommentsYes0 (1 standard drink = 0.6 oz pure alcohol)3-4 drinks 4 or more times a week, coffee 1 cup, couple cans of caffeine free pop (sprite)Humiliation, Afraid, Rape, and Kick questionnaireAnswerDate RecordedWithin the last year, have you been afraid of your partner or ex-partner?No07/07/2023Within the last year, have you been humiliated or emotionally abused in other ways by your partner or ex-partner?No07/07/2023 Within the last year, have you been kicked, hit, slapped, or otherwise physically hurt by your partner or ex-partner?No07/07/2023Within the last year, have you been raped or forced to have any kind of sexual activity by your part ner or ex-partner?No07/07/2023Social Connection and Isolation PanelAnswerDate RecordedIn a typical week, how many times do you talk on the phone with family, friends, or neighbors?More than three times a week07/07/2023How often do you get together with friends or relatives?More than three times a week07/07/2023How often do you attend scientology or christian services?Never07/07/2023o you belong to any clubs or organizations such as scientology groups, unions, fraternal or athletic groups, or school groups?No07/07/2023How often do you attend meetings of the clubs or organizations you belong to?Never07/07/2023re you , , , , never , or living with a partner?Rngailve36/05/2023 AUDIT-CAnswerDate RecordedQ1: How often do you have a drink containing alcohol? 2-3 times a week07/07/2023Q2: How many drinks containing alcohol do you have on a typical day when you are drinking?1 or Q3: How often do you have six or more drinks on one occasion?Zpsqglr6307/07/2023Overall Financial Resource Strain (CARDIA)AnswerDate RecordedHow hard is it for you to pay for the very basics like food, housing, medical care, and heating?Not hard at all07/07/2023 PHQ-2AnswerDate RecordedPatient Health Questionnaire-2 Jvugo971FinParkview [facility] - Occupational Stress QuestionnaireAnswerDate RecordedDo you feel stress - tense, restless, nervous, or anxious, or unable to sleep at night because yourmind is troubled all the time - these days?Only a uoyrii4007/07/2023Exercise Vital SignAnswerDate RecordedOn average, how many days per week do you engage in moderate to strenuous exercise (like a brisk walk)?7 days07/07/2023On average, how many minutes do you engage in exercise at this level?30 min07/07/2023Hunger Vital SignAnswerDate RecordedWithin the past 12 months, you worried that your food would run out before you got the money to buy more.Never true07/07/2023Within the past 12 months, the food you bought just didn't last and you didn't have money to get more.Never true07/07/2023RAPARE - TransportationAnswerDate RecordedIn the past 12 months, has lack of transportation kept you from medical appointments or from getting medications?No 07/07/2023In the past 12 months, has lack of transportation kept you from meetings, work, or from getting things needed for daily living?No07/07/2023 Housing Stability Vital SignAnswerDate RecordedIn the last 12 months, was there a time when you were not able to pay the mortgage or rent on time?No07/07/2023 Number of Places Lived in the Last YearNot on file07/07/2023In the last 12 months, was there a time when you did not have a steady place to sleep or slept in roanokeelter (including now)?No12/05/2023Sex and Gender InformationValueDate RecordedSex Assigned at YkuzxCqec54/05/2023 3:25 PM ESTLegal UobProe2510/15/2022 7:26 PM EDTGender FrxrffjaDosm26/15/2023 7:26 PM EDTSexual OrientationStraight 07/07/2023 3:25 PM EST Last Filed Vital Signs Vital SignReadingTime TakenCommentsBlood Igjqjrnc275/8208 4:24 PM EDT Jarig076907/11/2025 2:31 PM PDRRjhhwmagagp08.6 ??C (97.8 ??F)03/21/2025 4:24 PM EDTRespiratory Wbzc970709/11/2024 2:31 PM ESTOxygen Wfnimxdqcu77%07/11/2025 2:31 PM ESTInhaled Oxygen Concentration--Kdnsxh141 kg (245 lb)07/11/2025 2:31 PM EST Kjtymh105 cm (6' 4 )07/11/2025 2:31 PM ESTBody Mass Index29.8207/11/2025 2:31 PM EST Plan of Treatment DateTypeDepartmentCare Team (Latest Contact Info)Dafmhohpvwr49/09/2026 2:50 PM EDTOffice Visit [facility] [address] [place] [address] Jenn Stevens MD [address] [place] [address] Health MaintenanceDue DateLast DoneCommentsCT Xpvqcaolibej32/05/1975Colonoscopy 1974FIT1974FOBT1974 9591Filkgtdadzqfg60/05/1975COVID-19 Vaccine ( season), 11/20/2020, 10/24/2020olorectal Cancer Barqwqcfd46/20/2027FIT-DNAInfluenza VaccineCompleted 05/26/2025, 05/18/2024, 06/15/2023, Additional history existsPneumococcal Vaccine: Pediatrics (0 to 5 Years) and At-Risk Patients (6 to 64 Years)Aged Out No longer eligible based on patient's age to complete this topic Goals GoalPatient Goal TypeAssociated ProblemsRecent ProgressPatient-Stated?Author Help patient manage antidepressant medication Care PlanPatient on antidepressant monitoring Danielle Mackey Baseline PHQ-9 Care PlanBaseline PHQ-9Danielle Colon Procedures Procedure NamePriorityDate/TimeAssociated DiagnosisCommentsLAB COLOGUARD?? COLON CANCER JMMJYQKxhfkza93/20/2024 4:30 PM EDT Colon cancer screening from Last 3 Months or Most Recently Relevant to Health Maintenance Results * Cologuard?? colon cancer screening (10/21/2023 4:30 PM EDT)ComponentValueRef RangeTest MethodAnalysis TimePerformed AtPathologist SignatureNONINV COLON CA DNA+OCC BLD SCRN STL-JQBYqklwygoRerlwgpr46/25/2024 6:00 PM EDTEXPlugaround (CLIA #:[id number])Comment: NEGATIVE TEST RESULT. A negative Cologuard result indicates a low likelihood that a colorectal cancer (CRC) or advanced adenoma (adenomatous polyps with more advanced pre-malignant features) ??is present. The chance that a person with a negative Cologuard test has a colorectal cancer is less than 1in 1500 (negative predictive value >99.9%) or has an advanced adenoma is less than 5.3% (negative predictive value 94.7%). These data are based on a prospective cross-sectional study of 10,000individuals at average risk for colorectal cancer who were screened with both Cologuard and colonoscopy. (Saran Oh al, N Engl J Med 2014;370(14):0695-2324) The normal value (reference range) for this assay is negative. COLOGUARD RE-SCREENING RECOMMENDATION: Periodic colorectal cancer screening is an important part ofpreventive healthcare for asymptomatic individuals at average risk for colorectal cancer. ??Following a negative Cologuard result, the [place] and U.S. Multi-Society Task Force screening guidelines recommend a Cologuard re-screening interval of 3 years. References: [place] Guideline for Colorectal Cancer Screening: https://www.cancer.or g/cancer/gqkit-whukre-zmebku/tdeizkdsr-ilpomzorw-pftuyzl/acs-recommendations.htm cornel; Fadi CODY, Dae RAMIREZ, Durga PaganK, Colorectal Cancer Screening: Recommendations for Physicians and Patients from the U.S. Multi-Society Task Force on Colorectal Cancer Screening , Am J Gastroenterology 2017; 112:9903-5672. TEST DESCRIPTION: Composite algorithmic analysis of stool DNA-biomarkers with hemoglobin immunoassay. ?? Quantitative values of individual biomarkers are not reportable and are not associated with individual biomarker result reference ranges. Cologuard is intended for colorectal cancer screening ofadults of either sex, 45 years or older, who are at average-risk for colorectal cancer (CRC). Cologuard has been approved for use by the U.S. FDA. The performance of Cologuard was established in a cross sectional study of average-risk adults aged 50-84. Cologuard performance in patients ages 45 to 49 years was estimated by sub-group analysis of near-age groups. Colonoscopies performed for a positive result may find as the most clinically significant lesion: colorectal cancer [4.0%], advanced adenoma (including sessile serrated polyps greater than or equal to 1cm diameter) [20%] or non- advanced adenoma [31%]; or no colorectal neoplasia [45%]. These estimates are derived from a prospective cross-sectional screening study of 10,000 individuals at average risk for colorectal cancer who were screened with both Cologuard and colonoscopy. (Saran Larios et al, N Engl J Med 2014;370(14):0614-5309.) Cologuard may produce a false negative or false positive result (no colorectal cancer or precancerous polyp present at colonoscopy follow up). A negative Cologuard test result does not guarantee the absence of CRC or advanced adenoma (pre-cancer). The current Cologuard screening interval is every 3 years. ([employer] [employer] and U.S. Multi-Society Task Force). Cologuard performance data in a 10,000 patient pivotal study using colonoscopy as the reference method can be accessed at the following location: www.Pandoo TEK.Metricly/results. Additional description of the Cologuard test process, warnings and precautions can be found at www.Asantaerd.com. Specimen (Source)Anatomical Location / LateralityCollection Method / Volume Collection TimeReceived TimeStool specimen (specimen)10/21/2023 4:30 PM EDT 10/22/2023 8:20 AM EDT Narrative Authorizing ProviderResult TypeResult StatusLisa Zayra NPDUKE MOLECULAR DIAGNOSTICS ORDERABLESFinal ResultPerforming OrganizationAddressCity/State/ZIP CodePhone Number .[facility] (CLIA #:[id number]) [address] [place] [address], [facility] (CLIA #:[id number]) [address] [address] from Last 3 Months or Most Recently Relevant to Health Maintenance Additional Health Concerns Active ProblemsNoted DateDiagnosed DatePatient on antidepressant monitoring plan 08/25/2024aseline PHQ-9008/25/2024 Insurance Care Teams Team MemberRelationshipSpecialtyStart DateEnd Date Rehan Olivier MD [address] [place] [phone] PCP - GeneralFamily Medicine10/12/23 Jenn Stevens MD [address] [place] [address] PCP - Medical [employer]08/03/1511 Estefany Iverson NP [address] [place] [address] Referring PhysicianFaboston regional medical center Medicine03/09/23 Estefany Iverson NP [address] [place] [address] Nurse PractitionerStephen[facility]10/12/23
--- OUTSIDE RECORDS SUMMARY | 2025-07-20 14:46 | XMS_ITS | Clinical Summary ---
Author Organization [facility] Address [address], [address] [place] [address] Care Team Providers Care Core Shaper Sides Name Role Phone Estefany Iverson APRN - DECLAN Primary Care Provide r Allergies No known active allergies Medications MedicationSigDispense QuantityRefillsLast FilledStart DateEnd DateStatus buprenorphine-naloxone (SUBOXONE) 8-2 MG SUBL SL tablet place 2 tablets under the tongue and ALLOW to dissolve once daily03/24/2022 Active omeprazole (PRILOSEC) 40 MG delayed release capsule take 1 capsule by mouth once daily04/18/2022ctive pregabalin (LYRICA) 100 MG capsule take 1 capsule by mouth every morning and take 2 capsules by mouth every evening 04/23/2022ctive Active Problems ProblemNoted DateDiagnosed DateHammertoe of second toe of right foot07/18/2022 Hammertoe of second toe of left foot07/18/2022ain in left foot2Pain in right foot07/18/2022ontracture, foot, right2Contracture, foot, left 07/18/2022Vasectomy qxieciugwg12/04/2019Laceration of right foot with ikwvfzesaspb22/27/2016 Resolved Problems ProblemNoted DateDiagnosed DateResolved DatePost-operative state07/18/2022 08/17/2022 Immunizations ImmunizationAdministration DatesNext DueTDaP, ADACEL (age 10y-64y), BOOSTRIX (age 10y+), IM, 0.5mL12/28/2015 Family History Medical HistoryRelationNameCommentsDiabetesFatherRelationNameStatusComments FatherAliveMotherAlive Social History Tobacco UseTypesPacks/DayYears UsedDateSmoking Tobacco: FormerCigarettesQuit: 06/03/2022mokeless Tobacco: Never Tobacco Cessation:Counseling Given: Not Answered Alcohol UseStandard Drinks/WeekCommentsYes0 (1 standard drink = 0.6 oz pure alcohol)Sex and Gender InformationValueDate RecordedSex Assigned at BirthNot on fileLegal JtcZikn0109/12/2012 1:58 PM ESTGender IdentityNot on fileSexual OrientationNot on file Last Filed Vital Signs Vital SignReadingTime TakenCommentsBlood Eghlhbfx753/8307/18/2022 10:30 AM EST Wjvih960707/18/2022 10:30 AM XYSYnskpowhfgf62.4 ??C (97.5 ??F)07/18/2022 10:30 AM ESTRespiratory Zszt590609/18/2021 10:30 AM ESTOxygen Hrdrqlrhhl12%07/18/2022 10:30 AM ESTInhaled Oxygen Concentration--Wdxnea391.4 kg (261 lb)09/29/2022 3:57 PM GKDZritok459 cm (6' 4 )09/29/2022 3:57 PM ESTBody Mass Index31.77009/29/2022 3:57 PM EST Plan of Treatment Health MaintenanceDue DateLast DoneCommentsDepression Ffsebx7511/05/1986HIV screen 1989Hepatitis C kahnhs7011/05/1992Hepatitis B vaccine (1 of 3 - 19+ 3-dose series)11/05/19934270Sqqrhz67/05/8981Dwfrlxitzld17/05/2020Colorectal Cancer Screen 11/06/2019FIT/FOBT: Average risk11/06/2019Fecal-DNA (Cologuard): Average risk 11/06/2019Sigmoidoscopy/CT hbtdkofhtprd47/05/2020Pneumococcal 50+ years Vaccine (1 of 1 - PCV)2024Shingles vaccine (1 of 2)2024Flu vaccine (#1) 511/01/2022, 07/19/2021, 05/03/2020, Additional history existsCOVID-19 Vaccine ( season), 11/20/2020, 10/24/2020 DTaP/Tdap/Td vaccine (2 - Td or Tdap)6012/28/2015Hepatitis A vaccineAged OutNo longer eligible based on patient's age to complete this topicHib vaccine Aged OutNo longer eligible based on patient's age to complete this topic Meningococcal (ACWY) vaccineAged OutNo longer eligible based on patient's age to complete this topicMeningococcal B vaccineAged OutNo longer eligible based on patient's age to complete this topicPolio vaccineAged OutNo longer eligible based on patient's age to complete this topic Medical Devices ImplantedTypeAreaManufacturerDevice IdentifierShelf Expiration DateModel / Serial / LotScrew Bne L28mm Dia2.5mm Stan Ft Ank Ti Self [facility] [id number] Implanted:Qty: 1 on 07/18/2022 by Mitul Paulson DPM at [facility]-[id number] / / [id number] Bne L30mm Dia2.5mm Stan Ft Ank Ti Self [facility] [id number] Implanted:Qty: 1 on 07/18/2022 [id number] / / [id number] Insurance Advance Directives * Full Code (Latest Code Status on File) Date ActivatedDate InactivatedComments12/28/2015 6:32 PM01/01/2016 8:11 AM Care Teams Team MemberRelationshipSpecialtyStart DateEnd Date Estefany Iverson, MATERIAL SPECIALIST - ACCOUNT COLLECTOR [address] [place] [address] PCP - GeneralNurse Bzwzjsmspiri61/12/22
--- OUTSIDE RECORDS SUMMARY | 2025-07-20 14:46 | XMS_ITS | Clinical Summary ---
Author Organization [facility] Address [id number] [place] [address] Care Team Providers Care Brake Repairer Hydraulic Name Role Phone Estefany Iverson GASOLINE POWER SHOVEL OPERATOR-SPUD GRADER Primary Care Provider Allergies No known active allergies Medications MedicationSigDispense QuantityRefillsLast FilledStart DateEnd DateStatus omeprazole (PriLOSEC) 10 mg capsule Take 1 capsule (10 mg total) by mouth.Active doxycycline (VIBRAMYCIN) 100 mg capsule Take 1 capsule (100 mg total) by mouth 2 (two) times a day. 20 capsule 07/05/2019Active Additional Information Patient not taking.Reported on 07/03/2025 pregabalin (LYRICA) 100 mg capsule Take 1 capsule (100 mg total) by mouth in the morning and 1 capsule (100 mg total) before bedtime.Active traZODone (DESYREL) 50 mg tablet 3Active XYOSTED 100 mg/0.5 mL auto-injector 05/06/2023ctive buprenorphine-naloxone (SUBOXONE) 8-2 mg film Dissolve on tongue.Active escitalopram (LEXAPRO) 10 mg tablet 5Active Active Problems ProblemNoted DateDiagnosed DateArthritis of left knee4Post-traumatic osteoarthritis of right knee08/19/2023Tobacco use07/13/2019Traumatic open wound of left lower leg07/06/2019 Encounters DateTypeDepartmentCare BumvAhaesjtksfa69/01/2025 3:00 PM ESTOffice Visit [facility] [address] [place] [phone] Maxx Borden MD Post-traumatic osteoarthritis of right knee (Primary Dx); Primary osteoarthritis of left knee07/03/20254765Dsvzok79/13/2025 10:20 AM EST - 06/15/2025 11:59 PM ESTHospital Encounter [facility] [address] [place] [address] Family history of early CAD; Abnormal echocardiography; Diastolic dysfunction; Fatigue, unspecified type; Obstructive sleep apnea syndrome Discharge Disposition: Home06/15/20253916Nxbygx78/24/2025 2:57 PM EDT - 04/26/2025 11:59 PM EDTHospital Encounter [facility] [address] [place] [phone] Other fatigue; Family history of premature CAD; Edema of both lower extremities Discharge Disposition: Home04/26/2025Travelfrom Last 3 Months Family History Medical HistoryRelationNameCommentsDiabetesFatherCancerMotherRelationNameStatus CommentsFatherAliveMotherAlive Social History Tobacco UseTypesPacks/DayYears UsedDateSmoking Tobacco: FormerCigarettes0.5Quit: mokeless Tobacco: Never Tobacco Cessation:Counseling Given: Not Answered Alcohol UseStandard Drinks/WeekCommentsYes2 (1 standard drink = 0.6 oz pure alcohol)ChildcareAnswerDate TjquzjepBdtmnqswbOsvecud05/10/2019EmploymentAnswer Date DpiheirfAdnjximflkCirhyfl40/10/2019Hunger ScreeningAnswerDate Recorded Within the past 12 months we worried whether our food would run out before we got money to buy more.Never True12/07/2024Within the past 12 months the food we bought just didn't last and we didn't have money to get more.Never True 12/07/2024Purpose - LifeAnswerDate RecordedPurpose and direction in lifeUnknown 09/12/2020ex and Gender InformationValueDate RecordedSex Assigned at BirthNot on fileLegal DegPeep8403/06/2015 1:21 PM EDTGender IdentityNot on fileSexual OrientationNot on file Last Filed Vital Signs Vital SignReadingTime TakenCommentsBlood Lkschwba705/7712 9:37 AM EST Evxul787007/13/2019 9:37 AM BEZPxrptuqfkpg40.8 ??C (98.3 ??F)07/13/2019 9:37 AM ESTRespiratory Jwhr759009/05/2018 4:08 PM ESTOxygen Vqzfdfeqvg42%07/05/2019 4:08 PM ESTInhaled Oxygen Concentration--Obvbfb422.5 kg (248 lb)03/30/2025 3:22 PM QHMKsixyf513 cm (6' 4 )03/30/2025 3:22 PM EDTBody Mass Index30.19003/30/2025 3:22 PM EDT Plan of Treatment DateTypeDepartmentCare Team (Latest Contact Info)Fcncsacsmny56/05/2026 11:00 AM ESTOffice Visit [facility] [address] [place] [address] Abiodun Posada MD [address] [place] [facility] [place] [phone] 10/11/2025 2:40 PM EDTOffice Visit [facility] [address] [facility] [place] [address] Maxx Borden MD [address] [place] [address] Health MaintenanceDue DateLast DoneCommentsDepression Uxztccrpp73/05/1987Adult BMI Follow Up Plan1992Zoster (Shingles) Vaccine (1 of 2)2024OVID-19 Vaccine ( - season)/, 11/20/2020, 10/24/2020 DTaP,Tdap and Td Vaccines (2 - Td or Tdap)/Adult BMI Vgmtjglrq35Tobacco Cvuogykzb41/08/2024Influenza VutvigmGaiyouest22/24/2025, 05/18/2024, 06/15/2023, Additional history exists Medical Devices Not on file Procedures Procedure NamePriorityDate/TimeAssociated DiagnosisCommentsTESTOSTERONERoutine 07/04/2025 4:04 PM EST Testicular hypofunction UUVPABBBADBjwxbnn13/02/2025 4:04 PM EST Testicular hypofunction PROSTATIC SPECIFIC ANTIGEN JAWHEOJhbjzwr24/02/2025 4:04 PM EST Testicular hypofunction [place] ARTHROCENTESIS ASPIR&/INJ MAJOR JT/BURSA W/O WZDmblova93/01/2025 3:17 PM EST Post-traumatic osteoarthritis of right knee Primary osteoarthritis of left knee STRESS TEST (EXERCISE ONLY)Qwrfwsf2806/15/2025 10:59 AM EST Family history of early CAD Abnormal echocardiography Diastolic dysfunction Fatigue, unspecified type Obstructive sleep apnea syndrome ECHO COMPLETE WO MFHSBRRMCipbnqd06/24/2025 3:41 PM EDT Other fatigue Family history of premature CAD Edema of both lower extremities from Last 3 Months Results * Prostatic specific antigen screen (07/04/2025 4:04 PM EST)ComponentValueRef RangeTest MethodAnalysis TimePerformed AtPathologist SignaturePROSTATIC SPEC ANT0.080.00 - 4.00 ng/mL07/04/2025 11:06 PM [facility]ATORYComment: The method used for this test is Makenna Chela DXI chemiluminescent immunoassay. Values obtained by different assay methods cannot be used interchangeably. Specimen (Source)Anatomical Location / LateralityCollection Method / Volume Collection TimeReceived TimeBloodVenous blood / UnknownVenipuncture / Unknown 07/04/2025 4:04 PM EST07/04/2025 4:04 PM EST Narrative Authorizing ProviderResult TypeResult StatusJenn HINES BLOOD ORDERABLESFinal ResultPerforming OrganizationAddressCity/State/ZIP CodePhone Number [facility] [address] [place] [address], [place] [phone] * Hemoglobin (07/04/2025 4:04 PM EST)ComponentValueRef RangeTest MethodAnalysis TimePerformed AtPathologist TzeishkwcUhknyiupbt18.413 - 17 g/dL07/04/2025 10:35 PM [facility]ORATORYSpecimen (Source)Anatomical Location / LateralityCollection Method / VolumeCollection TimeReceived Time BloodVenous blood / UnknownVenipuncture / Hxylrih9207/04/2025 4:04 PM EST 07/04/2025 4:04 PM EST Narrative Authorizing ProviderResult TypeResult StatusAhmaboni Stevens [facility]AB[facility] BLOOD ORDERABLESFinal ResultPerforming OrganizationAddressCity/State/ZIP CodePhone Number [facility] [address] [place] [address], * (ABNORMAL) Testosterone (07/04/2025 4:04 PM EST)ComponentValueRef RangeTest MethodAnalysis TimePerformed AtPathologist SignatureTESTOSTERONE0.32(L)1.68 - 7.46 ng/mL07/05/2025 12:16 AM [facility]ATORYSpecimen (Source)Anatomical Location / LateralityCollection Method / VolumeCollection TimeReceived TimeBloodVenous blood / UnknownVenipuncture / Zsoeqpo9207/04/2025 4:04 PM EST07/04/2025 4:04 PM EST Narrative Authorizing ProviderResult TypeResult StatusJenn Stevens [facility] BLOOD ORDERABLESFinal ResultPerforming OrganizationAddressCity/State/ZIP CodePhone Number [facility] [address] [place] [address], * [place] ARTHROCENTESIS ASPIR&/INJ MAJOR JT/BURSA W/O US (07/03/2025 3:17 PM EST) Narrative MANUALLY TRANSCRIBED RESULTS - 07/03/2025 3:17 PM EST Maxx Borden MD 07/03/2025 4:58 PM $ Large Joint Injection: knee, bilateral knee on 07/03/2025 3:17 PM Indications: pain Details: 22 G needle, [...] risks and benefits explained, specific risks discussed. Consent was given by the patient. Patient was prepped and draped in the usual sterile fashion. Authorizing ProviderResult TypeResult StatusDavid C Michi MDPROCEDURE/MINOR SURGICAL ORDERABLESFinal ResultPerforming OrganizationAddressCity/State/ZIP Code Phone Number MANUALLY TRANSCRIBED RESULTS * Stress test (exercise only) (06/15/2025 10:59 AM EST)ComponentValueRef Range Test MethodAnalysis TimePerformed AtPathologist SignatureTarget QC879izo IECGCUPIDExercise duration (min)9minIECGCUPIDExercise duration (sec)0sec TVVCRXFMEAK39yjjKVKPLFMIQEiiwfl peak TL784zdnBSSUHPFSUFkqjxxpc Systolic BP141 mmHgIECGCUPIDDiastolic PN59veAuNIMPOQPCPKuowsm peak systolic QH623qdXq IECGCUPIDDiastolic XQ88mvXhWNMEDWAIBMO19ehmHAZATFAIRIdvanb recovery systolic FS926niQpMGQRANXMPNxwoobuwj HF55hvOeVBKTCVZVJBjqxinn HR87%IECGCUPIDMax MM of ST Depression0.0IECGCUPIDAngina Trppd8DYTTJIFMHBcwe Score9.00IECGCUPID Anatomical RegionLateralityModalityChestN/AOtherSpecimen (Source)Anatomical Location / LateralityCollection Method / VolumeCollection TimeReceived Time Narrative 06/16/2025 12:19 PM EST Baseline ECG indicates sinus rhythm and normal ECG. There were no arrhythmias during stress. Overall, the patient's functional capacity was average. The stress ECG was negative. The calculated Mendez Treadmill Score of 9 represents a low risk only with regards to the exercise findings. Stress Findings A stress exercise protocol was performed. A Kali protocol stress test was performed. Overall, the patient's exercise capacity was normal for their age. The patient reached stage 3 of the protocol after exercising for 9 min 0 sec. Patient achieved a maximal heart rate of 148 bpm (87% of maximum predicted heart rate). The patient experienced no angina during the test. The test was stopped because the patient experienced fatigue and dyspnea. The patient reached the end of the protocol and achieved the target heart rate. The patient requested the test to be stopped. The test was stopped due to hypertension and target heart rate achieved. The patient reported dyspnea, leg pain, fatigue and muscle fatigue during the stress test. Symptoms began during stress and ended during recovery. ECG Baseline ECG indicates sinus rhythm and normal ECG. There were no arrhythmias during stress. Overall, the patient's functional capacity was average. The stress ECG was negative. The calculatedDuke Treadmill Score of 9 represents a low risk only with regards to the exercise findings. Authorizing ProviderResult TypeResult StatusLisa Latasha Hendrickshchelsea GASOLINE POWER SHOVEL OPERATOR-CNPCV STRESS ORDERABLESFinal Result * Echo complete W/O contrast (04/26/2025 3:41 PM EDT)ComponentValueRef RangeTest MethodAnalysis TimePerformed AtPathologist SignatureLVOT stroke wkxykh385.66ml XCELERALV Systolic Gpfzgk67.41aAOSJFAOJMW79%UOVUWQNWO9071 - 44 %XCELERALV Diastolic Nazste267.21iCQJALDHIIQAIz5.01inGXGODUOSCFQo6.96bsWFTCPSRIDO5.800.6 - 1.1 cmXCELERAPW1.000.6 - 1.1 cmXCELERALVOT diameter2.25wbOJQNTTJRKL1.68cm/s XCELERAMV TDI E' (medial)6.74cm/sXCELERALA Volume Index28.8mL/l9WGZVWGKK/A ratio2.14XCELERAE wave deceleration iykg130.00msecXCELERAMV Peak E Yde402.00 cm/sXCELERAMV Peak A Vel48.50cm/sXCELERALA size3.60cmXCELERAAortic root3.40cm XCELERALA vsnlco93.38zd8GPFZEVJXU diastolic dimension (basal)36.0mmXCELERA TAPSE2.77cmXCELERAAV peak ezs729.00cm/sXCELERALVOT peak vel1.04m/sXCELERAAV VTI30.60cmXCELERALVOT peak VTI25.60cmXCELERAAV mean gradient4.00mmHgXCELERAAV peak gradient6.35mmHgXCELERAAV valve area4.10XCELERAValve area - Index1.6 XCELERAMV pressure 1/2 time69.00msXCELERAMV valve area p 1/2 method3.19cm2 XCELERATR Peak Vel2.3m/sXCELERATR peak wbmauxpi40.25mmHgXCELERALV ESV A2C54.90 mLXCELERALV ESV A4C89.10mLXCELERALV RWT 2D32.79XCELERAEcho EF Roisegdmq08% XCELERAAV Velocity Ratio0.84XCELERALeft Ventricle Vpgh881.07270808577937x XCELERAInterventricular Septum Diastolic Thickness by 4H6mrNHDHCMZGff. RA hlwbmlhq8hfKePTTDQQRNB E' average9.0cm/sXCELERARA area17.9so6RCQAABTMT Peak Systolic Ljqnydej75ljVtUFZVEKTXrjspbuehf RegionLateralityModalityChestN/A UltrasoundSpecimen (Source)Anatomical Location / LateralityCollection Method / VolumeCollection TimeReceived Time Narrative 04/27/2025 11:30 AM EDT Left Ventricle: Left ventricle is mildly dilated. Systolic function is normal with an ejection fraction of 55-60%. The quantitative EF by 2D Cerna biplane is 61%. There is grade II (moderate) diastolic dysfunction and elevated left atrial pressure. Lateral E' is 9.68 cm/s. Medial E' is 6.74 cm/s. Average E' is 9.0 cm/s. ?Tricuspid??Valve: RVSP calculated at 28 mmHg. RVSP is based on RA pressure of 8 mmHg. Left Ventricle Left ventricle is mildly dilated. Wall thickness is normal. Systolic function is normal with an ejection fraction of 55-60%. The quantitative EF by 2D Cerna biplane is 61%. No obvious regional wallmotion abnormalities, however some segments are poorly visualized. There is grade II (moderate) diastolic dysfunction and elevated left atrial pressure. Lateral E' is 9.68 cm/s. Medial E' is 6.74 cm/s. Average E' is 9.0 cm/s. Right Ventricle Right ventricular size appears normal. The right ventricular basal diameter is 36.0 mm. Systolic function is normal. Left Atrium Left atrium volume index is normal. The left atrial volume index is 28.8 mL/m2. Right Atrium Right atrium is normal in size. The right atrial area is 17.4 cm2. IVC/SVC The right atrial pressure is estimated at 8 mmHg. IVC appears dilated with increased right atrial pressure. There is normal collapse with deep inspiration. Mitral Valve Mitral valve structure is normal. There is trace regurgitation. There is no evidence of mitral valve stenosis. Tricuspid Valve Tricuspid valve appears to be normal. There is mild regurgitation. RVSP calculated at 28 mmHg. RVSPis based on RA pressure of 8 mmHg. Aortic Valve The aortic valve is trileaflet. There is no regurgitation or stenosis. Pulmonic Valve The pulmonic valve was not well visualized. There is no regurgitation. Ascending Aorta The aortic root is normal in size. Pericardium There is no pericardial effusion. Study Details A complete echo was performed using complete 2D, color flow Doppler and spectral Doppler. Overall the study quality was adequate. The study was difficult due to patient's poor acoustic windows. Wall Scoring Baseline Score Index: 1.00 The left ventricular wall motion is normal. Authorizing ProviderResult TypeResult StatusLisa Latasha MCFARLANECV ECHO ORDERABLESFinal Result from Last 3 Months Insurance Care Teams Team MemberRelationshipSpecialtyStart DateEnd Date Estefany Iverson APRN-CNP PCP - GeneralNurse Practitioner7/28/22
--- OUTSIDE RECORDS SUMMARY | 2025-07-20 14:46 | XMS_ITS | Encounter Summary ---
Author Organization [facility] Address [address] [place] [address] Care Team Providers Care Display Screen Fabricator Name Role Phone Estefany Iverson NP Unavailable [phone] Rehan Olivier MD Primary Care Provider Estefany Iverson NP Unavailable [phone] Jenn Stevens MD Unavailable Encounter Details DateTypeDepartmentCare Team (Latest Contact Info)Gnuqbbhroiy10/09/2025Bamboo flowsheet [facility] [place] [facility] [address] [place] [phone] Jenn Stevens MD [address] [place] [address] Social History Tobacco UseTypesPacks/DayYears UsedDateSmoking Tobacco: FormerCigarettesPassive [...] times a week07/07/2023How often do you attend catholic or scientology services?Never07/07/2023o you belong to any clubs or organizations such as catholic groups, unions, fraternal or athletic groups, or school groups?No 07/07/2023How often do you attend meetings of the clubs or organizations you belong to?Never07/07/2023re you , , , , never , or living with a partner?Ggqogeca12/05/2023UDIT-CAnswerDate Recorded Q1: How often do you have a drink containing alcohol?2-3 times a week07/07/2023 Q2: How many drinks containing alcohol do you have on a typical day when you are drinking?1 or Q3: How often do you have six or more drinks on one occasion?Opfjpux5107/07/2023Overall Financial Resource Strain (CARDIA)AnswerDate RecordedHow hard is it for you to pay for the very basics like food, housing, medical care, and heating?Not hard at all07/07/2023HQ-2AnswerDate Recorded Patient Health Questionnaire-2 Wlygl271Fin[facility] Occup[facility] - Occupational Stress QuestionnaireAnswerDate RecordedDo you feel stress - tense, restless, nervous, or anxious, or unable to sleep at night because your mind is troubled all the time - these days?Only a uxkwpm2207/07/2023Exercise Vital SignAnswerDate RecordedOn average, how many days [...] steady place to sleep or slept in [facility] (including now)?No07/07/2023 Sex and Gender InformationValueDate RecordedSex Assigned at NkdqdDedf40/05/2023 3:25 PM ESTLegal MjqKugn5310/15/2022 7:26 PM EDTGender LydnvhxoXenl18/15/2023 7:26 PM EDTSexual XmvnlpikioqOforwuwd69/05/2023 3:25 PM ESTdocumented as of this encounter Plan of Treatment DateTypeDepartmentCare Team (Latest Contact Info)Rpdbpgtztmb61/09/2026 2:50 PM EDTOffice Visit [facility] [place] [facility] [address] [place] [phone] Jenn Stevens MD [address] [place] [address] documented as of this encounter Goals GoalPatient Goal TypeAssociated ProblemsRecent ProgressPatient-Stated?Author Help patient manage antidepressant medication Care PlanPatient on antidepressant monitoring planNoNearDanielle morton Baseline PHQ-9 Care PlanBaseline PHQ-9NoNearDanielle mortondocumented as of this encounter Visit Diagnoses Not on filedocumented in this encounter Additional Health Concerns Active ProblemsNoted DateDiagnosed DatePatient on antidepressant monitoring plan 5Baseline PHQ-90/documented as of this encounter Care Teams Team MemberRelationshipSpecialtyStart DateEnd Date Rehan Olivier MD [address] [place] [phone] PCP - GeneralFamily Medicine10/12/23 Jenn Stevens MD [address] [place] [address] PCP - Medical [employer]08/03/1511 Estefany Iverson NP [address] [place] [address] Referring PhysicianFamily Medicine03/09/23 Estefany Iverson NP [address] [place] [address] Nurse PractitionerFamily Medicine10/12/23documented as of this encounter
== END 2025-07-20 14:44 | disposition home or self-care (01) ==
LOC: FHNEUROLOG 14:43
PROVIDERS: PCP Nurse Practitioner; Visit Provider Psychiatry & Neurology Neurology
DX: G47.33 Obstructive sleep apnea (adult) (pediatric) (principal)
CPT/HCPCS: G0463